=== PATIENT | female | born 1925 ===

== ENCOUNTER 2017-07-28 10:20 | Inpatient (IN) | payer MEDICARE, MEDICAID ==
--- NOTE | 2017-07-28 10:25 | C.PDOC ---
History Of Present Illness 89 year old female is brought to the ED by EMS for evaluation of CP, palpitations, dizziness that occurred while she was walking REHAB RN. Per EMS, patient was found to be in AFib she was given cardizem 15 mg that resolved the AFib. Patient reports CP is much improved, dizziness improved. Patient denies prior history of similar symptoms, no CAD or recent illness. Patient denies syncope, headaceh, visual changes, SOB, weakness, numbness, fever, chills. CP, PALPITATIONS DIZZY ONSET REHAB RN. ONSET WHILE WALKING. NO SYNCOPE. AFIB PER EMS. S/P CARDIZEM 15 MG NOW RESOLVED. PS CP MUCH IMPROVED, DIZZINESS IMPROVED. PT DENIES PRIOR HO SIM SX. NO HO CAD. NO RECENT ILLNESS EXAM MILD DIST NONTOXIC HEENT NEG LUNGS CTA B/L NO W/R/R CV RRR SINUS TACH NO EDEMA ABD NEG REMAINDER NEG MDM EMS RHYTHM STRIP UNAVAILABLE FOR REVIEW Chief Complaint (Nursing): Chest Pain History Per: Patient, EMS History/Exam Limitations: no limitations Onset/Duration Of Symptoms: Hrs Current Symptoms Are (Timing): Better Quality: "Pain" Associated Symptoms: Nausea Modifying Factors: None Exacerbating Factors: None Alleviating Factors: Other (cardizem 15 mg ) Recent travel outside of the [place]: No Additional History Per: Patient, EMS Past Medical History Reviewed: Historical Data, Nursing Documentation, Vital Signs Vital Signs: Last Vital Signs Temp 98.1 F 07/28/17 10:20 Pulse 112 H 07/28/17 11:08 Resp 20 07/28/17 11:08 BP 90/48 L 07/28/17 11:08 Pulse Ox 96 07/28/17 11:45 - Medical History PMH: No Chronic Diseases Surgical History: No Surg Hx Family History: States: Unknown Family Hx - Social History Hx Tobacco Use: No Hx Alcohol Use: No Hx Substance Use: No Review Of Systems Constitutional: Negative for: Fever, Chills Cardiovascular: Positive for: Chest Pain, Palpitations Respiratory: Negative for: Cough, Shortness of Breath Gastrointestinal: Negative for: Nausea, Vomiting, Abdominal Pain, Diarrhea Musculoskeletal: Negative for: Back Pain Skin: Negative for: Rash Neurological: Positive for: Dizziness. Negative for: Weakness, Numbness, Headache Physical Exam - Physical Exam Appears: Non-toxic, Other (Mild distress) Skin: Normal Color, Warm, Dry Head: Atraumatic, Normacephalic Eye(s): bilateral: Normal Inspection Ear(s): Bilateral: Normal Nose: No Discharge, No Deformity Oral Mucosa: Moist Throat: Normal, No Erythema, No Exudate Neck: Normal ROM, Supple Chest: Symmetrical Cardiovascular: Rhythm Regular (sinus tachycardia), No Murmur Respiratory: Normal Breath Sounds, No Rales, No Rhonchi, No Wheezing Gastrointestinal/Abdominal: Soft, No Tenderness, No Guarding, No Rebound Extremity: Normal ROM, No Pedal Edema, No Deformity, No Swelling Neurological/Psych: Oriented x3, Normal Speech, Normal Cognition Gait: Steady ED Course And Treatment - Laboratory Results Result Diagrams: 07/28/17 10:33 07/28/17 10:33 ECG: Interpreted By Me ECG Rhythm: Sinus Tachycardia ECG Interpretation: No Changes From Prior, Abnormal Interpretation Of ECG: TWI I,AVL V4-6 NO PRIOR Rate From EC O2 Sat by Pulse Oximetry: 96 (On RA) Pulse Ox Interpretation: Normal - Radiology CXR: Interpreted by Me CXR Interpretation: Yes: No Acute Disease Progress - Re-Evaluation Re-evaluation Note: 07/28/17 10:40 PER FRIEND, PT PREV EVALUATED BY DR GARCIA. 07/28/17 10:42 PS TOOK "4 PILLS" BY EMS REHAB RN. NO S/O FROM EMS IF ASA GIVEN. 07/28/17 10:58 PERIST DIZZY AND CP BUT IMPROVED FROM PRIOR. SBP 60 POOR RADIAL PALP REPEAT EKG SINUS TACH @ 113. PERSIST TWI CHANGES, UNCH FROM INITIAL EKG WILL BOLUS IVF. D/W DR GARCIA AWARE OF ER FINDINGS. EKG SENT 07/28/17 11:19 S/P EKG REVIEWED PER DR GARCIA ACTIVATE CODE HEART. BRILENTA 180, HEPARIN BOLUS, PLAVIX 600 MG D/W FAMILY @ BEDSIDE, AWARE AND AGREES W PLAN - Data Reviewed Data Reviewed: Lab, Diagnostic imaging, EKG, Old records - Critical Care Citical Care: Excluding Proc Time Critical Care Time: 90 minutes - Continuity of Care Discussed patient case with:: Patient, Family-HIPPA compliant Discussed pt. case with program evaluation consultant/specialty: Cardiology Medical Decision Making Medical Decision Making: Impression : Afib, chest pain Plan: * Labs * EKG * CXR * Brilinta 180 mg PO * Ecotrin 325 mg PO * Heparin 5,000 units IV * Nitroglycerin 0.4 mg SL * Plavix 75 mg PO * IV fluids * O2 nasal cannula Spoke with Dr. Garcia regarding the patient. Disposition Counseled Patient/Family Regarding: Studies Performed, Diagnosis - Disposition Disposition: HOSPITALIZED Disposition Time: 11:20 Condition: CRITICAL - POA Present On Arrival: None Core Measure Indicators: Code Heart - Clinical Impression Clinical Impression: STEMI (ST elevation myocardial infarction) - Scribe Statement The provider has reviewed the documentation as recorded by the Scribe Elvis Kelly All medical record entries made by the Scribe were at my direction and personally dictated by me. I have reviewed the chart and agree that the record accurately reflects my personal performance of the history, physical exam, medical decision making, and the department course for this patient. I have also personally directed, reviewed, and agree with the discharge instructions and disposition. Decision To Admit - Pt Status Changed To: Hospital Disposition Of: Inpatient - Admit Certification Admit to Inpatient:: After my assessment, the patient will require hospitalization for at least two midnights. This is because of the severity of symptoms shown, intensity of services needed, and/or the medical risk in this patient being treated as an outpatient. - InPatient: Physician Admission Certification: I certify that this patient requires 2 or more midnights of care for the following reason:: SEE NOTE - . Bed Request Type: ICU Admitting Physician: Eloisa Smith Patient Diagnosis: STEMI (ST elevation myocardial infarction)
[2017-07-28] MEDS ORDERED: Aspirin 325 mg EC Tablets PO STA (10:27)
[2017-07-28 10:38] LABS: BASO % 0.9 % (0.0-2.0); EOS # 0.1 K/uL (0.0-0.7); EOS % 2.1 % (0.0-4.0); HEMOGLOBIN 13.2 g/dL (11.0-16.0); LYMPH % 21.5 % (20.0-40.0); MEAN CELL VOLUME 86.3 fL (81.0-99.0); MEAN CORPUSCULAR HEMOGLOBIN 28.9 pg (27.0-31.0); MEAN CORPUSCULAR HGB CONC 33.5 g/dL (33.0-37.0); MEAN PLATELET VOLUME 8.5 fL (7.2-11.7); MONO # 0.6 K/uL (0.0-0.8); MONO % 13.6 % (0.0-10.0); NEUT # 2.9 K/uL (1.8-7.0); NEUT % 61.9 % (50.0-75.0); NRBC % 0.1 % (0.0-2.0); RBC 4.57 Mil/uL (3.80-5.20); RED CELL DISTRIBUTION WIDTH 15.5 % (11.5-14.5); WHITE BLOOD COUNT 4.7 K/uL (4.8-10.8)
[2017-07-28 10:44] LABS: PROTHROMBIN TIME 11.7 SECONDS (9.7-12.2)
[2017-07-28 10:55] LABS: ALB/GLOB RATIO 1.3 (1.0-2.1); ALBUMIN 4.3 g/dL (3.5-5.0); ALT/SGPT 27 U/L (9-52); AST/SGOT 26 U/L (14-36); BLOOD UREA NITROGEN 21 mg/dL (7-17); GFR AFRICAN-AMERICAN > 60; GFR NON-AFRICAN AMERICAN > 60
[2017-07-28] MEDS ORDERED: Sodium Chloride 0.9% 1,500 ML IV ONE (11:00)
--- NOTE | 2017-07-28 11:05 | RAD ---
PROCEDURE: CHEST RADIOGRAPH, 1 VIEW HISTORY: Palpations COMPARISON: None available. FINDINGS: LUNGS: Lung lee appear hyperinflated ; rule out underlying chronic changes of emphysema or COPD. Mild biapical pleural thickening. Bibasilar atelectasis left greater than right. PLEURA: No pneumothorax or pleural fluid seen. CARDIOVASCULAR: Normal. OSSEOUS STRUCTURES: No significant abnormalities. VISUALIZED UPPER ABDOMEN: Normal. OTHER FINDINGS: None. IMPRESSION: Lung lee appear hyperinflated ; rule out underlying chronic changes of emphysema or COPD. Mild biapical pleural thickening. Bibasilar atelectasis left greater than right.
[2017-07-28 11:06] LABS: B-TYPE NATRIURETIC PEPTIDE 417 pg/mL (0-900)
[2017-07-28] MEDS ORDERED: Sodium Chloride 0.9% 500 ML IV ONE (11:16)
[2017-07-28] MEDS ORDERED: Sodium Chloride 0.9% 1,000 ML ONE (11:16)
[2017-07-28] MEDS ORDERED: Heparin25000 units/250ml 1/2NS 25,000 UNITS/250 ML BAG IV STA (11:34)
[2017-07-28] MEDS ORDERED: Iodixanol 320 MG/ML 200 ML BOTTLE IV ONE (12:15)
[2017-07-28] MEDS ORDERED: Nitroglycerin 50mg in D5W 50 MG/250 ML BOTTLE IV ONE (12:24)
[2017-07-28] MEDS: Heparin25000 units/250ml 1/2NS 25,000 UNITS/250 ML BAG IV SCH (13:00)
[2017-07-28] MEDS ORDERED: Heparin25000 units/250ml 1/2NS 25,000 UNITS/250 ML BAG IV SCH (13:30)
[2017-07-28] MEDS ORDERED: Metoprolol Succinate 25 mg XL Tab PO ONE (13:35)
[2017-07-28] MEDS: Sodium Chloride 0.9% 1,000 ML IV SCH (14:10)
[2017-07-28 14:18] LABS: CK-MB 2.13 ng/mL (0.0-3.38); TROPONIN I 0.049 ng/mL (0.00-0.120)
--- NOTE | 2017-07-28 15:55 | CP.PCM.HP ---
<Adriana Rodriguez - Last Filed: 07/28/17 18:10> History of Present Illness - History of Present Illness History of Present Illness: CC: chest pain, palpitations, and dizziness HPI: Patient is an 89 year old female with past medical history of HTN and DM, who presents to the ED with complaints of chest pain, palpitations, and dizziness that started this morning around 8:30am. Patient was getting ready to go out with her children, when she began to have strong/severe chest pain that radiated to her left shoulder, palpitations, and dizziness. This is the first time she has experienced these symptoms. In the ambulance, patient was found to have new onset of afib w/rvr, was given Cardizem and Nitroglycerin. Patient became hypotensive and was then given 1.5L bolus of normal saline. Hypotension then resolved. In the ED, patient was found to have EKG changes (ST elevation in avr, T wave inversions in avl, v4-6). Patient currently has less pain, but complains of dizziness and headaches. Patient denies having shortness of breath , nausea, vomiting, fevers, leg pain/swelling. PMD: Dr. Mirlande Daniels PMHx: HTN, DM SurgHx: Cholecystectomy (30+ years ago) FamHx: Mother-stroke; Brother- colon ca; Sister- cervical cancer; Sons- DM, leukemia open heart surgery) Allergies: NKDA Medications: See EMR Code status: Full Code Present on Admission - Present on Admission Any Indicators Present on Admission: No Review of Systems - Constitutional Constitutional: Headache. absent: Chills, Fatigue, Fever, Weakness - EENT Eyes: absent: Change in Vision, Floaters Ears: Dizziness - Cardiovascular Cardiovascular: Chest Pain, Chest Pain with Activity, Lightheadedness, Palpitations. absent: Dyspnea - Respiratory Respiratory: absent: Cough, Dyspnea, Hemoptysis - Gastrointestinal Gastrointestinal: absent: Abdominal Pain, Constipation, Diarrhea, Hematochezia, Nausea, Vomiting - Genitourinary Genitourinary: absent: Dysuria, Hematuria - Neurological Neurological: Dizziness, Headaches - Endocrine Endocrine: Palpitations Past Patient History - Infectious Disease Hx of Infectious Diseases: None - Past Social History Smoking Status: Never Smoked - CARDIAC Hx Hypertension: Yes - ENDOCRINE/METABOLIC Hx Diabetes Mellitus Type 2: Yes - MUSCULOSKELETAL/RHEUMATOLOGICAL Hx Falls: No - PSYCHIATRIC Hx Substance Use: No - SURGICAL HISTORY Hx Surgeries: Yes Hx Cholecystectomy: Yes - ANESTHESIA Hx Anesthesia: Yes Hx Anesthesia Reactions: No Hx Malignant Hyperthermia: No Meds Allergies/Adverse Reactions: Allergies Allergy/AdvReac Type Severity Reaction Status Date / Time No Known Allergies Allergy Unverified 07/28/17 10:25 Physical Exam - Constitutional Appears: No Acute Distress - Head Exam Head Exam: ATRAUMATIC, NORMAL INSPECTION - Eye Exam Eye Exam: EOMI, Normal appearance, PERRL - ENT Exam ENT Exam: Mucous Membranes Moist - Respiratory Exam Respiratory Exam: Clear to Auscultation Bilateral, NORMAL BREATHING PATTERN. absent: Rales, Rhonchi, Wheezes, Respiratory Distress - Cardiovascular Exam Cardiovascular Exam: Tachycardia, +S1, +S2 - GI/Abdominal Exam GI & Abdominal Exam: Normal Bowel Sounds, Soft. absent: Distended, Firm - Extremities Exam Extremities exam: Positive for: normal inspection, pedal pulses present. Negative for: tenderness - Neurological Exam Neurological exam: Alert, Oriented x3 - Psychiatric Exam Psychiatric exam: Normal Affect, Normal Mood - Skin Skin Exam: Dry, Intact, Normal Color, Warm Results - Vital Signs Recent Vital Signs: Last Vital Signs Temp 97.5 F L 07/28/17 13:05 Pulse 102 H 07/28/17 13:33 Resp 20 07/28/17 13:05 BP 113/58 L 07/28/17 13:05 Pulse Ox 96 07/28/17 12:25 - Labs Result Diagrams: 07/28/17 10:33 07/28/17 10:33 Labs: Laboratory Results - last 24 hr 07/28/17 07/28/17 07/28/17 10:33 10:33 10:33 WBC 4.7 L RBC 4.57 Hgb 13.2 Hct 39.5 MCV 86.3 MCH 28.9 MCHC 33.5 RDW 15.5 H Plt Count 153 MPV 8.5 Neut % (Auto) 61.9 Lymph % (Auto) 21.5 [place] % (Auto) 13.6 H Eos % (Auto) 2.1 Baso % (Auto) 0.9 Neut # (Auto) 2.9 Lymph # (Auto) 1.0 [place] # (Auto) 0.6 Eos # (Auto) 0.1 Baso # (Auto) 0.0 PT 11.7 INR 1.0 APTT 34 Sodium 139 Potassium 4.1 Chloride 101 Carbon Dioxide 27 Anion Gap 15 BUN 21 H Creatinine 0.6 L Est GFR ( Amer) > 60 Est GFR (Non-Af Amer) > 60 Random Glucose 197 H Calcium 9.0 Total Bilirubin 0.6 AST 26 ALT 27 Alkaline Phosphatase 80 Total Creatine Kinase CK-MB (Mass) Troponin I < 0.0120 NT-Pro-B Natriuret Pep 417 Total Protein 7.7 Albumin 4.3 Globulin 3.4 Albumin/Globulin Ratio 1.3 Blood Type Antibody Screen 07/28/17 07/28/17 11:49 13:47 WBC RBC Hgb Hct MCV MCH MCHC RDW Plt Count MPV Neut % (Auto) Lymph % (Auto) [place] % (Auto) Eos % (Auto) Baso % (Auto) Neut # (Auto) Lymph # (Auto) [place] # (Auto) Eos # (Auto) Baso # (Auto) PT INR APTT Sodium Potassium Chloride Carbon Dioxide Anion Gap BUN Creatinine Est GFR ( Amer) Est GFR (Non-Af Amer) Random Glucose Calcium Total Bilirubin AST ALT Alkaline Phosphatase Total Creatine Kinase 44 CK-MB (Mass) 2.13 Troponin I 0.0490 NT-Pro-B Natriuret Pep Total Protein Albumin Globulin Albumin/Globulin Ratio Blood Type O POSITIVE Antibody Screen Negative Assessment & Plan (1) STEMI (ST elevation myocardial infarction) Assessment and Plan: Cardiology consulted, Dr. Garcia, help appreciated ICU consulted, help appreciated EKG: ST elevations on avr, T wave inversions on avl, v4,v5,v6. F/u official report New onset afib Troponin #1 <0.012, #2 0.0490, #3 pending BNP: 417 CKMB: 2.13 Lipid panel: f/u results TSH: f/u results Patient went for cardiac cath with Dr. Garcia today. - As per Dr Garcia, there is 80% stenosis of ostium of LAD. - F/U official report Asa 81mg PO daily Brillinta 90mg PO BID Metoprolol 25mg pO daily Heparin Drip Crestor 5mg PO HS NS@100mls/hr Continue management as per ICU and as per cardiology Status: Acute (2) HTN (hypertension) Assessment and Plan: Metoprolol 25mg PO daily Continue management as per ICU Status: Acute (3) Diabetes mellitus Assessment and Plan: History of DM ISS Continue to monitor blood glucose, accuchecks Continue management as per ICU Status: Acute <Mode Vasquezripden - Last Filed: 07/28/17 20:11> Results - Vital Signs Recent Vital Signs: Last Vital Signs Temp 97.3 F L 07/28/17 15:55 Pulse 108 H 07/28/17 19:00 Resp 20 07/28/17 19:00 BP 120/69 07/28/17 19:00 Pulse Ox 99 07/28/17 17:40 - Labs Result Diagrams: 07/28/17 10:33 07/28/17 10:33 Labs: Laboratory Results - last 24 hr 07/28/17 07/28/17 07/28/17 10:33 10:33 10:33 WBC 4.7 L RBC 4.57 Hgb 13.2 Hct 39.5 MCV 86.3 MCH 28.9 MCHC 33.5 RDW 15.5 H Plt Count 153 MPV 8.5 Neut % (Auto) 61.9 Lymph % (Auto) 21.5 [place] % (Auto) 13.6 H Eos % (Auto) 2.1 Baso % (Auto) 0.9 Neut # (Auto) 2.9 Lymph # (Auto) 1.0 [place] # (Auto) 0.6 Eos # (Auto) 0.1 Baso # (Auto) 0.0 PT 11.7 INR 1.0 APTT 34 Sodium 139 Potassium 4.1 Chloride 101 Carbon Dioxide 27 Anion Gap 15 BUN 21 H Creatinine 0.6 L Est GFR ( Amer) > 60 Est GFR (Non-Af Amer) > 60 POC Glucose (mg/dL) Random Glucose 197 H Calcium 9.0 Total Bilirubin 0.6 AST 26 ALT 27 Alkaline Phosphatase 80 Total Creatine Kinase CK-MB (Mass) Troponin I < 0.0120 NT-Pro-B Natriuret Pep 417 Total Protein 7.7 Albumin 4.3 Globulin 3.4 Albumin/Globulin Ratio 1.3 Blood Type Antibody Screen 07/28/17 07/28/17 07/28/17 11:49 13:47 17:02 WBC RBC Hgb Hct MCV MCH MCHC RDW Plt Count MPV Neut % (Auto) Lymph % (Auto) [place] % (Auto) Eos % (Auto) Baso % (Auto) Neut # (Auto) Lymph # (Auto) [place] # (Auto) Eos # (Auto) Baso # (Auto) PT INR APTT Sodium Potassium Chloride Carbon Dioxide Anion Gap BUN Creatinine Est GFR ( Amer) Est GFR (Non-Af Amer) POC Glucose (mg/dL) 182 H Random Glucose Calcium Total Bilirubin AST ALT Alkaline Phosphatase Total Creatine Kinase 44 CK-MB (Mass) 2.13 Troponin I 0.0490 NT-Pro-B Natriuret Pep Total Protein Albumin Globulin Albumin/Globulin Ratio Blood Type O POSITIVE Antibody Screen Negative 07/28/17 07/28/17 17:07 19:21 WBC RBC Hgb Hct MCV MCH MCHC RDW Plt Count MPV Neut % (Auto) Lymph % (Auto) [place] % (Auto) Eos % (Auto) Baso % (Auto) Neut # (Auto) Lymph # (Auto) [place] # (Auto) Eos # (Auto) Baso # (Auto) PT INR APTT 200 H* D 77 H D Sodium Potassium Chloride Carbon Dioxide Anion Gap BUN Creatinine Est GFR ( Amer) Est GFR (Non-Af Amer) POC Glucose (mg/dL) Random Glucose Calcium Total Bilirubin AST ALT Alkaline Phosphatase Total Creatine Kinase CK-MB (Mass) Troponin I NT-Pro-B Natriuret Pep Total Protein Albumin Globulin Albumin/Globulin Ratio Blood Type Antibody Screen Attending/Attestation - Attestation I have personally seen and examined this patient.: Yes I have fully participated in the care of the patient.: Yes I have reviewed all pertinent clinical information: Yes Notes (Text): Patient was seen and examined in the ER and later at ICU discussed with her daughter and son spoke to Dr Garcia I agree with the documentation of the resident's assessment and the plan 07/28/17 20:08
[2017-07-28] MEDS: (Novolin R) Insulin Human Regular 100 units/ml vial SC SCH ×2 (17:30→21:35)
--- NOTE | 2017-07-28 21:35 | CARDCATH ---
PROCEDURE DATE: 07/28/2017 INDICATIONS: Ms. Jaqui Mccoy is a very pleasant 89-year-old female who had an episode of chest pain this morning, substernal pressure like sensation radiating to the left arm, accompanied with shortness of breath. EMS came and brought her to the emergency room. En route, the patient was noted to be in new onset atrial fibrillation for which Cardizem was given. In the ER, the patient was noted to be hypertensive and initial EKG showed ST-elevation in aVL with diffused ST depression in the lateral leads. She was therefore brought emergently to [facility] for further evaluation and treatment. PROCEDURES PERFORMED: Left heart catheterization with selective left and right coronary angiogram, left ventriculogram, 6-Bangladeshi right femoral arterial access, Mynx closure device for hemostasis. TECHNIQUES OF PROCEDURE: After obtaining informed consent, the patient was brought to the cardiac cath suite in post-absorptive, non-sedated state. The patient was prepped and draped in the usual sterile fashion. A 2% lidocaine was used for infiltration of anesthesia. Using modified Seldinger technique, a 6-Bangladeshi sheath was introduced into the right femoral artery subsequently over J-wire. JR4 and JL4 diagnostic catheters were used to engage the left and right coronary systems and angiograms were obtained in different orthogonal views. Subsequently, LV gram was obtained in the [place] view. HEMODYNAMICS: Left ventricular end-diastolic pressure was 25 mmHg. There was no gradient noted up on the aortic valve. There was no AI and no GA. Left ventricular ejection fraction estimated to be 60% to 65% with no wall motion abnormalities. CORONARY ANATOMY: The left main is a large-sized vessel, bifurcates into left anterior descending and the left circumflex coronary artery. Left anterior descending artery has an osteal 80% stenosis, left circumflex large-sized vessel runs in the AV groove and gives off three obtuse marginal branches with mild nonobstructive disease and left anterior descending artery after the osteal lesion is essentially free off obstructive atherosclerotic disease at approximately 30-40% stenosis before the first diagonal branch. Has two small diagonal branches at the . Right coronary artery patent codominant with no obstructive atherosclerotic disease. IMPRESSION: Severe osteal left anterior descending (coronary artery) stenosis. RECOMMENDATIONS: The patient is to continue on dual antiplatelet therapy. We will discuss with family regarding angioplasty stenting versus minimal invasive bypass. Continue the patient on beta-blockers, statins and nitrates and guideline-directed therapy for coronary artery disease. Dusty Garcia MD
[2017-07-28 22:28] LABS: CK-MB 2.72 ng/mL (0.0-3.38); TROPONIN I 0.184 ng/mL (0.00-0.120)
[2017-07-29] MEDS: Sodium Chloride 0.9% 1,000 ML IV SCH ×2 (00:50→11:24)
[2017-07-29 06:47] LABS: BASO % 0.6 % (0.0-2.0); EOS # 0.1 K/uL (0.0-0.7); EOS % 0.7 % (0.0-4.0); LYMPH % 14.5 % (20.0-40.0); MEAN CELL VOLUME 86.6 fL (81.0-99.0); MEAN CORPUSCULAR HEMOGLOBIN 29.5 pg (27.0-31.0); MEAN CORPUSCULAR HGB CONC 34.1 g/dL (33.0-37.0); MEAN PLATELET VOLUME 9.8 fL (7.2-11.7); MONO # 0.8 K/uL (0.0-0.8); MONO % 11.9 % (0.0-10.0); NEUT # 5.1 K/uL (1.8-7.0); NEUT % 72.3 % (50.0-75.0); RBC 3.58 Mil/uL (3.80-5.20); RED CELL DISTRIBUTION WIDTH 15.5 % (11.5-14.5); WHITE BLOOD COUNT 7.1 K/uL (4.8-10.8)
[2017-07-29 06:55] LABS: HEMOGLOBIN 10.6 g/dL (11.0-16.0)
[2017-07-29 07:11] LABS: ALB/GLOB RATIO 1.1 (1.0-2.1); ALBUMIN 3.7 g/dL (3.5-5.0); ALT/SGPT < 6 U/L (9-52); AST/SGOT 51 U/L (14-36); BLOOD UREA NITROGEN 13 mg/dL (7-17); GFR AFRICAN-AMERICAN > 60; GFR NON-AFRICAN AMERICAN > 60; MAGNESIUM 1.8 mg/dL (1.6-2.3)
[2017-07-29 07:23] LABS: CK-MB 2.22 ng/mL (0.0-3.38)
[2017-07-29] MEDS: (Novolin R) Insulin Human Regular 100 units/ml vial SC SCH ×4 (08:14→22:31)
[2017-07-29] MEDS: Metoprolol Succinate 25 mg XL Tab PO SCH ×2 (08:15→09:14)
[2017-07-29] MEDS: Pantoprazole 40 mg EC Tab PO SCH (09:14)
[2017-07-29] MEDS ORDERED: Glucagon Recombinant 1 mg Inj IM PRN (09:54)
[2017-07-29] MEDS ORDERED: Dextrose 50% SYRINGE Inj (50 ml) IV PRN (09:54)
--- NOTE | 2017-07-29 09:54 | CP.PCM.PN ---
Subjective - Date & Time of Evaluation Date of Evaluation: 07/29/17 Time of Evaluation: 09:40 - Subjective Subjective: Hospitalist Progress Note Patient was seen and examined at 9:40 AM 07/29/17. NO longer experiencing chest pain NO dizziness NO palpitations (+) Left Shoulder pain persists but is less than it was yesterday Moved bowels without issues and there was no melena/black stools Bilateral leg and feet arthritic pain (has been present for years Also on Exam: HEENT: NCA, EOMI, PERRLA, NO Pharyngeal erythema/exudate, NO cervical/ supraclavicular/submandibular lymphadenopathy, NO thyromegaly Cardio: NS1 and NS2, NO M/R/G Resp: CTA B/L, NO R/R/W GI: NT, ND, BSx4, NO HSM NO rebound/guarding Ext: Pulses are strong and equal, Capillary Refill is 2 seconds, NO edema, NO bleeding or signs of cellulitis at Right Groin Catheterization Site Neuro: CN II through XII are grossly intact Patient is S/P Cardiac Catheterization by Cardiology Dr. Garcia 07/28/17 with finding of 80% occlusion [place] LAD. As per conversation with Nurse Gale, patient is for transfer to either [facility] or [facility] for stenting once Dr. Garcia makes arrangements. She is on Heparin Drip, ASA, Metoprolol, Crestor, and Brilinta Assessments: 1). STEMI 2). HTN 3). DM 2: RISS, ACHS 4). [place]: Latanoprost 5). Elevated LFTs: secondary to shock liver? Monitor Arpan Hare D.O. Objective - Vital Signs/Intake and Output Vital Signs (last 24 hours): Temp Pulse Resp BP Pulse Ox 97.8 F 96 H 10 L 135/81 98 07/29/17 07:47 07/29/17 09:00 07/29/17 09:00 07/29/17 08:29 07/29/17 09:00 Intake and Output: 07/29/17 07/29/17 06:59 18:59 Intake Total 885.8 416.5 Output Total 1100 400 Balance -214.2 16.5 - Medications Medications: Current Medications Alprazolam (Xanax) 0.5 mg PO Q12 PRN PRN Reason: anxiety Aspirin (Aspirin Chewable) 81 mg PO DAILY PENDING SALE TO [facility] Last Admin: 07/29/17 09:14 Dose: 81 mg Heparin Sodium/Sodium Chloride (Heparin 27757 Units/250ml 1/2 Normal Saline) 25 ,000 units in 250 mls @ 7.185 mls/hr IV .Q24H JAZMYNE; 12 UNITS/KG/HR PRN Reason: Protocol Last Titration: 07/28/17 18:55 Dose: 9 units/kg/hr, 5.389 mls/hr Sodium Chloride (Sodium Chloride 0.9%) 1,000 mls @ 40 mls/hr IV .Q24H JAZMYNE Insulin Human Regular (Novolin R) 0 unit SC ACHS JAZMYNE PRN Reason: Protocol Last Admin: 07/29/17 08:14 Dose: 1 unit Latanoprost (Xalatan Opht) 0 ml OU HS PENDING SALE TO [facility] Metoprolol Succinate (Toprol Xl) 25 mg PO DAILY PENDING SALE TO [facility] Last Admin: 07/29/17 09:14 Dose: Not Given Pantoprazole Sodium (Protonix Ec Tab) 40 mg PO DAILY PENDING SALE TO [facility] Last Admin: 07/29/17 09:14 Dose: 40 mg Rosuvastatin Calcium (Crestor) 5 mg PO HS PENDING SALE TO [facility] Last Admin: 07/28/17 21:35 Dose: 5 mg Ticagrelor (Brilinta) 90 mg PO BID PENDING SALE TO [facility] Last Admin: 07/29/17 09:14 Dose: 90 mg - Labs Labs: 07/29/17 06:43 07/29/17 06:43 PT 11.7 SECONDS (9.7-12.2) 07/28/17 10:33 INR 1.0 07/28/17 10:33 APTT 57 SECONDS (21-34) H D 07/29/17 06:43
--- NOTE | 2017-07-29 10:37 | CP.PCM.CON ---
History of Present Illness - History of Present Illness History of Present Illness: CC: chest pain, palpitations, and dizziness HPI: Patient is an 89 year old female with past medical history of HTN and DM, who presents to the ED with complaints of chest pain, palpitations, and dizziness that started this morning around 8:30am. Patient was getting ready to go out with her children, when she began to have strong/severe chest pain that radiated to her left shoulder, palpitations, and dizziness. This is the first time she has experienced these symptoms. In the ambulance, patient was found to have new onset of afib w/rvr, was given Cardizem and Nitroglycerin. Patient became hypotensive and was then given 1.5L bolus of normal saline. Hypotension then resolved. In the ED, patient was found to have EKG changes (ST elevation in avr, T wave inversions in avl, v4-6). Patient currently has less pain, but complains of dizziness and headaches. Patient denies having shortness of breath , nausea, vomiting, fevers, leg pain/swelling. PMD: Dr. Mirlande Daniels PMHx: HTN, DM SurgHx: Cholecystectomy (30+ years ago) FamHx: Mother-stroke; Brother- colon ca; Sister- cervical cancer; Sons- DM, leukemia open heart surgery) Allergies: NKDA Medications: See EMR Code status: Full Code Review of systems notable for the chart. On examination: Vital signs reviewed No neck vein distention noted Chest good air entry bilaterally, no wheezing or rales noted CVS regular heart sound, no murmur noted Abdomen soft, nontender. 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 Patient has a questionable rest elevation [place], underwent a angiogram, CAD noted. Patient will need a stent. Cardiology will be deciding for possibly the upper elective stenting. On heparin, antiplatelets and beta abbey. Past Patient History - Infectious Disease Hx of Infectious Diseases: None - Past Social History Smoking Status: Never Smoked - CARDIAC Hx Hypertension: Yes - ENDOCRINE/METABOLIC Hx Diabetes Mellitus Type 2: Yes - MUSCULOSKELETAL/RHEUMATOLOGICAL Hx Falls: No - PSYCHIATRIC Hx Substance Use: No - SURGICAL HISTORY Hx Surgeries: Yes Hx Cholecystectomy: Yes - ANESTHESIA Hx Anesthesia: Yes Hx Anesthesia Reactions: No Hx Malignant Hyperthermia: No Meds Allergies/Adverse Reactions: Allergies Allergy/AdvReac Type Severity Reaction Status Date / Time No Known Allergies Allergy Unverified 07/28/17 10:25 - Medications Medications: Current Medications Alprazolam (Xanax) 0.5 mg PO Q12 PRN PRN Reason: anxiety Aspirin (Aspirin Chewable) 81 mg PO DAILY [facility] Last Admin: 07/29/17 09:14 Dose: 81 mg Dextrose (Dextrose 50% Inj) 0 ml IV STAT PRN; Protocol PRN Reason: Hypoglycemia Protocol Dextrose (Glutose 15) 0 gm PO ONCE PRN; Protocol PRN Reason: Hypoglycemia Protocol Glucagon (Glucagen Diagnostic Kit) 0 mg IM STAT PRN; Protocol PRN Reason: Hypoglycemia Protocol Heparin Sodium/Sodium Chloride (Heparin 17206 Units/250ml 1/2 Normal Saline) 25 ,000 units in 250 mls @ 7.185 mls/hr IV .Q24H JAZMYNE; 12 UNITS/KG/HR PRN Reason: Protocol Last Titration: 07/28/17 18:55 Dose: 9 units/kg/hr, 5.389 mls/hr Sodium Chloride (Sodium Chloride 0.9%) 1,000 mls @ 40 mls/hr IV .Q24H JAZMYNE Dextrose (Dextrose 5% In Water 1000 Ml) 1,000 mls @ 0 mls/hr IV .Q0M PRN; Protocol; Per Protocol PRN Reason: Hypoglycemia Protocol Insulin Human Regular (Novolin R) 0 unit SC ACHS [facility] PRN Reason: Protocol Last Admin: 07/29/17 08:14 Dose: 1 unit Latanoprost (Xalatan Opht) 0 ml OU HS [facility] Metoprolol Succinate (Toprol Xl) 25 mg PO DAILY [facility] Last Admin: 07/29/17 09:14 Dose: Not Given Pantoprazole Sodium (Protonix Ec Tab) 40 mg PO DAILY [facility] Last Admin: 07/29/17 09:14 Dose: 40 mg Rosuvastatin Calcium (Crestor) 5 mg PO HS [facility] Last Admin: 07/28/17 21:35 Dose: 5 mg Ticagrelor (Brilinta) 90 mg PO BID [facility] Last Admin: 07/29/17 09:14 Dose: 90 mg Results - Vital Signs Recent Vital Signs: Last Vital Signs Temp 97.8 F 07/29/17 07:47 Pulse 85 07/29/17 10:00 Resp 19 02/05/18 10:00 BP 151/60 H 07/29/17 09:28 Pulse Ox 97 07/29/17 10:00 - Labs Result Diagrams: 07/29/17 06:43 07/29/17 06:43 Labs: Laboratory Results - last 24 hr 07/28/17 07/28/17 07/28/17 10:33 10:33 10:33 WBC 4.7 L RBC 4.57 Hgb 13.2 Hct 39.5 MCV 86.3 MCH 28.9 MCHC 33.5 RDW 15.5 H Plt Count 153 MPV 8.5 Neut % (Auto) 61.9 Lymph % (Auto) 21.5 [place] % (Auto) 13.6 H Eos % (Auto) 2.1 Baso % (Auto) 0.9 Neut # (Auto) 2.9 Lymph # (Auto) 1.0 [place] # (Auto) 0.6 Eos # (Auto) 0.1 Baso # (Auto) 0.0 PT 11.7 INR 1.0 APTT 34 Sodium 139 Potassium 4.1 Chloride 101 Carbon Dioxide 27 Anion Gap 15 BUN 21 H Creatinine 0.6 L Est GFR ( Amer) > 60 Est GFR (Non-Af Amer) > 60 POC Glucose (mg/dL) Random Glucose 197 H Calcium 9.0 Magnesium Total Bilirubin 0.6 Direct Bilirubin AST 26 ALT 27 Alkaline Phosphatase 80 Total Creatine Kinase CK-MB (Mass) Troponin I < 0.0120 NT-Pro-B Natriuret Pep 417 Total Protein 7.7 Albumin 4.3 Globulin 3.4 Albumin/Globulin Ratio 1.3 Blood Type Antibody Screen 07/28/17 07/28/17 07/28/17 11:49 13:47 17:02 WBC RBC Hgb Hct MCV MCH MCHC RDW Plt Count MPV Neut % (Auto) Lymph % (Auto) [place] % (Auto) Eos % (Auto) Baso % (Auto) Neut # (Auto) Lymph # (Auto) [place] # (Auto) Eos # (Auto) Baso # (Auto) PT INR APTT Sodium Potassium Chloride Carbon Dioxide Anion Gap BUN Creatinine Est GFR ( Amer) Est GFR (Non-Af Amer) POC Glucose (mg/dL) 182 H Random Glucose Calcium Magnesium Total Bilirubin Direct Bilirubin AST ALT Alkaline Phosphatase Total Creatine Kinase 44 CK-MB (Mass) 2.13 Troponin I 0.0490 NT-Pro-B Natriuret Pep Total Protein Albumin Globulin Albumin/Globulin Ratio Blood Type O POSITIVE Antibody Screen Negative 07/28/17 07/28/17 07/28/17 17:07 19:21 21:20 WBC RBC Hgb Hct MCV MCH MCHC RDW Plt Count MPV Neut % (Auto) Lymph % (Auto) [place] % (Auto) Eos % (Auto) Baso % (Auto) Neut # (Auto) Lymph # (Auto) [place] # (Auto) Eos # (Auto) Baso # (Auto) PT INR APTT 200 H* D 77 H D Sodium Potassium Chloride Carbon Dioxide Anion Gap BUN Creatinine Est GFR ( Amer) Est GFR (Non-Af Amer) POC Glucose (mg/dL) 120 H Random Glucose Calcium Magnesium Total Bilirubin Direct Bilirubin AST ALT Alkaline Phosphatase Total Creatine Kinase CK-MB (Mass) Troponin I NT-Pro-B Natriuret Pep Total Protein Albumin Globulin Albumin/Globulin Ratio Blood Type Antibody Screen 07/28/17 07/29/17 07/29/17 21:46 01:23 06:43 WBC 7.1 D RBC 3.58 L Hgb 10.6 L D Hct 31.0 L MCV 86.6 MCH 29.5 MCHC 34.1 RDW 15.5 H Plt Count 154 MPV 9.8 Neut % (Auto) 72.3 Lymph % (Auto) 14.5 L [place] % (Auto) 11.9 H Eos % (Auto) 0.7 Baso % (Auto) 0.6 Neut # (Auto) 5.1 Lymph # (Auto) 1.0 [place] # (Auto) 0.8 Eos # (Auto) 0.1 Baso # (Auto) 0.0 PT INR APTT 69 H D Sodium Potassium Chloride Carbon Dioxide Anion Gap BUN Creatinine Est GFR ( Amer) Est GFR (Non-Af Amer) POC Glucose (mg/dL) Random Glucose Calcium Magnesium Total Bilirubin Direct Bilirubin AST ALT Alkaline Phosphatase Total Creatine Kinase 44 CK-MB (Mass) 2.72 Troponin I 0.1840 H* NT-Pro-B Natriuret Pep Total Protein Albumin Globulin Albumin/Globulin Ratio Blood Type Antibody Screen 07/29/17 07/29/17 07/29/17 06:43 06:43 07:41 WBC RBC Hgb Hct MCV MCH MCHC RDW Plt Count MPV Neut % (Auto) Lymph % (Auto) [place] % (Auto) Eos % (Auto) Baso % (Auto) Neut # (Auto) Lymph # (Auto) [place] # (Auto) Eos # (Auto) Baso # (Auto) PT INR APTT 57 H D Sodium 138 Potassium 5.1 Chloride 108 H Carbon Dioxide 24 Anion Gap 11 BUN 13 Creatinine 0.5 L Est GFR ( Amer) > 60 Est GFR (Non-Af Amer) > 60 POC Glucose (mg/dL) 157 H Random Glucose 127 H Calcium 8.0 L Magnesium 1.8 Total Bilirubin 1.5 H Direct Bilirubin 1.0 H AST 51 H D ALT < 6 L D Alkaline Phosphatase 58 Total Creatine Kinase 69 CK-MB (Mass) 2.22 Troponin I 0.1490 H* NT-Pro-B Natriuret Pep Total Protein 7.0 Albumin 3.7 Globulin 3.3 Albumin/Globulin Ratio 1.1 Blood Type Antibody Screen
--- NOTE | 2017-07-29 10:38 | CP.CCUPN ---
CCU Subjective - Physician Review Events Since Last Encounter (Free Text): 07/29/17 10:37 Patient is an 89 year old female with past medical history of HTN and DM, who presents to the ED with complaints of chest pain, palpitations, and dizziness that started this morning around 8:30am. Patient was getting ready to go out with her children, when she began to have strong/severe chest pain that radiated to her left shoulder, palpitations, and dizziness. This is the first time she has experienced these symptoms. In the ambulance, patient was found to have new onset of afib w/rvr, was given Cardizem and Nitroglycerin. Patient became hypotensive and was then given 1.5L bolus of normal saline. Hypotension then resolved. In the ED, patient was found to have EKG changes (ST elevation in avr, T wave inversions in avl, v4-6). Patient currently has less pain, but complains of dizziness and headaches. Patient denies having shortness of breath , nausea, vomiting, fevers, leg pain/swelling. PMD: Dr. Mirlande Daniels PMHx: HTN, DM SurgHx: Cholecystectomy (30+ years ago) FamHx: Mother-stroke; Brother- colon ca; Sister- cervical cancer; Sons- DM, leukemia open heart surgery) Allergies: NKDA Medications: See EMR Code status: Full Code Review of systems notable for the chart. On examination: Vital signs reviewed No neck vein distention noted Chest good air entry bilaterally, no wheezing or rales noted CVS regular heart sound, no murmur noted Abdomen soft, nontender. Extremities no pedal edema [employer] SALESPERSON alert awake oriented -3, no functional neurological deficit Right groin is no bleeding noted Assessment/aggregation: 89 female history of hypertension diabetes admitted with chest pain. Patient has a questionable rest elevation [place], underwent a angiogram, CAD noted. Patient will need a stent. Cardiology will be deciding for possibly the upper elective stenting. On heparin, antiplatelets and beta abbey. will transfer the pt to [facility] CCU Objective - Vital Signs / Intake & Output Vital Signs (Last 4 hours): Vital Signs Temp Pulse Resp BP Pulse Ox 07/29/17 10:00 85 19 97 07/29/17 09:28 88 23 151/60 H 97 07/29/17 09:00 96 H 10 L 98 07/29/17 08:29 99 H 18 135/81 97 07/29/17 08:28 99 H 23 97 07/29/17 08:00 117 H 22 97 07/29/17 07:47 97.8 F 07/29/17 07:28 103 H 19 134/74 97 07/29/17 07:00 114 H 21 95 Intake and Output (Last 8hrs): Intake & Output 07/28/17 07/29/17 07/29/17 22:59 06:59 14:59 Intake Total 1313.4 344.0 456.5 Output Total 1000 700 400 Balance 313.4 -356.0 56.5 Weight 132 lb Intake: IV 50 Intake, IV Amount 843.4 244.0 256.5 Left Forearm 43.4 44.0 16.5 Left Proximal Port 800 200 240 Forearm Oral 420 100 200 Output: Urine 1000 700 400 Urine, Voided 1000 700 400 Other: # Bowel Movements 0 0 - Medications Active Medications: Active Medications Generic Name Dose Route Start Last Admin Trade Name Freq PRN Reason Stop Dose Admin Alprazolam 0.5 mg 07/29/17 09:33 Xanax PO Q12 PRN anxiety Aspirin 81 mg 07/29/17 10:00 07/29/17 09:14 Aspirin Chewable PO 81 mg DAILY JAZMYNE Administration Dextrose 0 ml 07/29/17 09:54 Dextrose 50% Inj IV STAT PRN Hypoglycemia Protocol Protocol Dextrose 0 gm 07/29/17 09:54 Glutose 15 PO ONCE PRN Hypoglycemia Protocol Protocol Glucagon 0 mg 07/29/17 09:54 Glucagen Diagnostic Kit IM STAT PRN Hypoglycemia Protocol Protocol Heparin Sodium/Sodium Chloride 25,000 units in 250 mls @ 7.185 mls/hr 13:34 07/28/17 18:55 Heparin 40148 Units/250ml 1/2 Normal Saline IV 9 units/kg/hr .Q24H JAZMYNE 5.389 mls/hr Protocol Titration 12 UNITS/KG/HR Sodium Chloride 1,000 mls @ 40 mls/hr 07/29/17 09:35 Sodium Chloride 0.9% IV .Q24H AJZMYNE Dextrose 1,000 mls @ 0 mls/hr 07/29/17 09:54 Dextrose 5% In Water 1000 Ml IV .Q0M PRN Hypoglycemia Protocol Protocol Per Protocol Insulin Human Regular 0 unit 07/28/17 16:30 07/29/17 08:14 Novolin R SC 1 unit ACHS JAZMYNE Administration Protocol Latanoprost 0 ml 07/29/17 22:00 Xalatan Opht OU HS [facility] Metoprolol Succinate 25 mg 07/29/17 10:00 07/29/17 09:14 Toprol Xl PO Not Given DAILY [facility]MY[facility] Pantoprazole Sodium 40 mg 07/29/17 10:00 07/29/17 09:14 Protonix Ec Tab PO 40 mg DAILY [facility] Administration Rosuvastatin Calcium 5 mg 07/28/17 22:00 07/28/17 21:35 Crestor PO 5 mg HS [facility]AZMYNE Administration Ticagrelor 90 mg 07/28/17 18:00 07/29/17 09:14 Brilinta PO 90 mg BID JAZMYNE Administration - Patient Studies Lab Studies: Lab Studies 07/29/17 07/29/17 07/29/17 Range/Units 07:41 06:43 06:43 WBC (4.8-10.8) K/uL RBC (3.80-5.20) Mil/uL Hgb (11.0-16.0) g/dL Hct (34.0-47.0) % MCV (81.0-99.0) fL MCH (27.0-31.0) pg MCHC (33.0-37.0) g/dL RDW (11.5-14.5) % Plt Count (130-400) K/uL MPV (7.2-11.7) fL Neut % (Auto) (50.0-75.0) % Lymph % (Auto) (20.0-40.0) % [place] % (Auto) (0.0-10.0) % Eos % (Auto) (0.0-4.0) % Baso % (Auto) (0.0-2.0) % Neut # (Auto) (1.8-7.0) K/uL Lymph # (Auto) (1.0-4.3) K/uL [place] # (Auto) (0.0-0.8) K/uL Eos # (Auto) (0.0-0.7) K/uL Baso # (Auto) (0.0-0.2) K/uL PT (9.7-12.2) SECONDS INR APTT 57 H D (21-34) SECONDS Sodium 138 (132-148) mmol/L Potassium 5.1 (3.6-5.2) mmol/L Chloride 108 H (98-107) mmol/L Carbon Dioxide 24 (22-30) mmol/L Anion Gap 11 (10-20) BUN 13 (7-17) mg/dL Creatinine 0.5 L (0.7-1.2) mg/dL Est GFR ( Amer) > 60 Est GFR (Non-Af Amer) > 60 POC Glucose (mg/dL) 157 H (65-110) mg/dL Random Glucose 127 H (65-105) mg/dL Calcium 8.0 L (8.6-10.4) mg/dl Magnesium 1.8 (1.6-2.3) mg/dL Total Bilirubin 1.5 H (0.2-1.3) mg/dL Direct Bilirubin 1.0 H (0.0-0.4) mg/dL AST 51 H D (14-36) U/L ALT < 6 L D (9-52) U/L Alkaline Phosphatase 58 (38-126) U/L Total Creatine Kinase 69 (30-135) U/L CK-MB (Mass) 2.22 (0.0-3.38) ng/mL Troponin I 0.1490 H* (0.00-0.120) ng/mL NT-Pro-B Natriuret Pep (0-900) pg/mL Total Protein 7.0 (6.3-8.3) g/dL Albumin 3.7 (3.5-5.0) g/dL Globulin 3.3 (2.2-3.9) gm/dL Albumin/Globulin Ratio 1.1 (1.0-2.1) Blood Type Antibody Screen 07/29/17 07/29/17 07/28/17 Range/Units 06:43 01:23 21:46 WBC 7.1 D (4.8-10.8) K/uL RBC 3.58 L (3.80-5.20) Mil/uL Hgb 10.6 L D (11.0-16.0) g/dL Hct 31.0 L (34.0-47.0) % MCV 86.6 (81.0-99.0) fL MCH 29.5 (27.0-31.0) pg MCHC 34.1 (33.0-37.0) g/dL RDW 15.5 H (11.5-14.5) % Plt Count 154 (130-400) K/uL MPV 9.8 (7.2-11.7) fL Neut % (Auto) 72.3 (50.0-75.0) % Lymph % (Auto) 14.5 L (20.0-40.0) % [place] % (Auto) 11.9 H (0.0-10.0) % Eos % (Auto) 0.7 (0.0-4.0) % Baso % (Auto) 0.6 (0.0-2.0) % Neut # (Auto) 5.1 (1.8-7.0) K/uL Lymph # (Auto) 1.0 (1.0-4.3) K/uL [place] # (Auto) 0.8 (0.0-0.8) K/uL Eos # (Auto) 0.1 (0.0-0.7) K/uL Baso # (Auto) 0.0 (0.0-0.2) K/uL PT (9.7-12.2) SECONDS INR APTT 69 H D (21-34) SECONDS Sodium (132-148) mmol/L Potassium (3.6-5.2) mmol/L Chloride (98-107) mmol/L Carbon Dioxide (22-30) mmol/L Anion Gap (10-20) BUN (7-17) mg/dL Creatinine (0.7-1.2) mg/dL Est GFR ( Amer) Est GFR (Non-Af Amer) POC Glucose (mg/dL) (65-110) mg/dL Random Glucose (65-105) mg/dL Calcium (8.6-10.4) mg/dl Magnesium (1.6-2.3) mg/dL Total Bilirubin (0.2-1.3) mg/dL Direct Bilirubin (0.0-0.4) mg/dL AST (14-36) U/L ALT (9-52) U/L Alkaline Phosphatase (38-126) U/L Total Creatine Kinase 44 (30-135) U/L CK-MB (Mass) 2.72 (0.0-3.38) ng/mL Troponin I 0.1840 H* (0.00-0.120) ng/mL NT-Pro-B Natriuret Pep (0-900) pg/mL Total Protein (6.3-8.3) g/dL Albumin (3.5-5.0) g/dL Globulin (2.2-3.9) gm/dL Albumin/Globulin Ratio (1.0-2.1) Blood Type Antibody Screen 07/28/17 07/28/17 07/28/17 Range/Units 21:20 19:21 17:07 WBC (4.8-10.8) K/uL RBC (3.80-5.20) Mil/uL Hgb (11.0-16.0) g/dL Hct (34.0-47.0) % MCV (81.0-99.0) fL MCH (27.0-31.0) pg MCHC (33.0-37.0) g/dL RDW (11.5-14.5) % Plt Count (130-400) K/uL MPV (7.2-11.7) fL Neut % (Auto) (50.0-75.0) % Lymph % (Auto) (20.0-40.0) % [place] % (Auto) (0.0-10.0) % Eos % (Auto) (0.0-4.0) % Baso % (Auto) (0.0-2.0) % Neut # (Auto) (1.8-7.0) K/uL Lymph # (Auto) (1.0-4.3) K/uL [place] # (Auto) (0.0-0.8) K/uL Eos # (Auto) (0.0-0.7) K/uL Baso # (Auto) (0.0-0.2) K/uL PT (9.7-12.2) SECONDS INR APTT 77 H D 200 H* D (21-34) SECONDS Sodium (132-148) mmol/L Potassium (3.6-5.2) mmol/L Chloride (98-107) mmol/L Carbon Dioxide (22-30) mmol/L Anion Gap (10-20) BUN (7-17) mg/dL Creatinine (0.7-1.2) mg/dL Est GFR ( Amer) Est GFR (Non-Af Amer) POC Glucose (mg/dL) 120 H (65-110) mg/dL Random Glucose (65-105) mg/dL Calcium (8.6-10.4) mg/dl Magnesium (1.6-2.3) mg/dL Total Bilirubin (0.2-1.3) mg/dL Direct Bilirubin (0.0-0.4) mg/dL AST (14-36) U/L ALT (9-52) U/L Alkaline Phosphatase (38-126) U/L Total Creatine Kinase (30-135) U/L CK-MB (Mass) (0.0-3.38) ng/mL Troponin I (0.00-0.120) ng/mL NT-Pro-B Natriuret Pep (0-900) pg/mL Total Protein (6.3-8.3) g/dL Albumin (3.5-5.0) g/dL Globulin (2.2-3.9) gm/dL Albumin/Globulin Ratio (1.0-2.1) Blood Type Antibody Screen 07/28/17 07/28/17 07/28/17 Range/Units 17:02 13:47 11:49 WBC (4.8-10.8) K/uL RBC (3.80-5.20) Mil/uL Hgb (11.0-16.0) g/dL Hct (34.0-47.0) % MCV (81.0-99.0) fL MCH (27.0-31.0) pg MCHC (33.0-37.0) g/dL RDW (11.5-14.5) % Plt Count (130-400) K/uL MPV (7.2-11.7) fL Neut % (Auto) (50.0-75.0) % Lymph % (Auto) (20.0-40.0) % [place] % (Auto) (0.0-10.0) % Eos % (Auto) (0.0-4.0) % Baso % (Auto) (0.0-2.0) % Neut # (Auto) (1.8-7.0) K/uL Lymph # (Auto) (1.0-4.3) K/uL [place] # (Auto) (0.0-0.8) K/uL Eos # (Auto) (0.0-0.7) K/uL Baso # (Auto) (0.0-0.2) K/uL PT (9.7-12.2) SECONDS INR APTT (21-34) SECONDS Sodium (132-148) mmol/L Potassium (3.6-5.2) mmol/L Chloride (98-107) mmol/L Carbon Dioxide (22-30) mmol/L Anion Gap (10-20) BUN (7-17) mg/dL Creatinine (0.7-1.2) mg/dL Est GFR ( Amer) Est GFR (Non-Af Amer) POC Glucose (mg/dL) 182 H (65-110) mg/dL Random Glucose (65-105) mg/dL Calcium (8.6-10.4) mg/dl Magnesium (1.6-2.3) mg/dL Total Bilirubin (0.2-1.3) mg/dL Direct Bilirubin (0.0-0.4) mg/dL AST (14-36) U/L ALT (9-52) U/L Alkaline Phosphatase (38-126) U/L Total Creatine Kinase 44 (30-135) U/L CK-MB (Mass) 2.13 (0.0-3.38) ng/mL Troponin I 0.0490 (0.00-0.120) ng/mL NT-Pro-B Natriuret Pep (0-900) pg/mL Total Protein (6.3-8.3) g/dL Albumin (3.5-5.0) g/dL Globulin (2.2-3.9) gm/dL Albumin/Globulin Ratio (1.0-2.1) Blood Type O POSITIVE Antibody Screen Negative 07/28/17 07/28/17 07/28/17 Range/Units 10:33 10:33 10:33 WBC 4.7 L (4.8-10.8) K/uL RBC 4.57 (3.80-5.20) Mil/uL Hgb 13.2 (11.0-16.0) g/dL Hct 39.5 (34.0-47.0) % MCV 86.3 (81.0-99.0) fL MCH 28.9 (27.0-31.0) pg MCHC 33.5 (33.0-37.0) g/dL RDW 15.5 H (11.5-14.5) % Plt Count 153 (130-400) K/uL MPV 8.5 (7.2-11.7) fL Neut % (Auto) 61.9 (50.0-75.0) % Lymph % (Auto) 21.5 (20.0-40.0) % [place] % (Auto) 13.6 H (0.0-10.0) % Eos % (Auto) 2.1 (0.0-4.0) % Baso % (Auto) 0.9 (0.0-2.0) % Neut # (Auto) 2.9 (1.8-7.0) K/uL Lymph # (Auto) 1.0 (1.0-4.3) K/uL [place] # (Auto) 0.6 (0.0-0.8) K/uL Eos # (Auto) 0.1 (0.0-0.7) K/uL Baso # (Auto) 0.0 (0.0-0.2) K/uL PT 11.7 (9.7-12.2) SECONDS INR 1.0 APTT 34 (21-34) SECONDS Sodium 139 (132-148) mmol/L Potassium 4.1 (3.6-5.2) mmol/L Chloride 101 (98-107) mmol/L Carbon Dioxide 27 (22-30) mmol/L Anion Gap 15 (10-20) BUN 21 H (7-17) mg/dL Creatinine 0.6 L (0.7-1.2) mg/dL Est GFR ( Amer) > 60 Est GFR (Non-Af Amer) > 60 POC Glucose (mg/dL) (65-110) mg/dL Random Glucose 197 H (65-105) mg/dL Calcium 9.0 (8.6-10.4) mg/dl Magnesium (1.6-2.3) mg/dL Total Bilirubin 0.6 (0.2-1.3) mg/dL Direct Bilirubin (0.0-0.4) mg/dL AST 26 (14-36) U/L ALT 27 (9-52) U/L Alkaline Phosphatase 80 (38-126) U/L Total Creatine Kinase (30-135) U/L CK-MB (Mass) (0.0-3.38) ng/mL Troponin I < 0.0120 (0.00-0.120) ng/mL NT-Pro-B Natriuret Pep 417 (0-900) pg/mL Total Protein 7.7 (6.3-8.3) g/dL Albumin 4.3 (3.5-5.0) g/dL Globulin 3.4 (2.2-3.9) gm/dL Albumin/Globulin Ratio 1.3 (1.0-2.1) Blood Type Antibody Screen Laboratory Results - last 24 hr 07/28/17 07/28/17 07/28/17 10:33 10:33 10:33 WBC 4.7 L RBC 4.57 Hgb 13.2 Hct 39.5 MCV 86.3 MCH 28.9 MCHC 33.5 RDW 15.5 H Plt Count 153 MPV 8.5 Neut % (Auto) 61.9 Lymph % (Auto) 21.5 [place] % (Auto) 13.6 H Eos % (Auto) 2.1 Baso % (Auto) 0.9 Neut # (Auto) 2.9 Lymph # (Auto) 1.0 [place] # (Auto) 0.6 Eos # (Auto) 0.1 Baso # (Auto) 0.0 PT 11.7 INR 1.0 APTT 34 Sodium 139 Potassium 4.1 Chloride 101 Carbon Dioxide 27 Anion Gap 15 BUN 21 H Creatinine 0.6 L Est GFR ( Amer) > 60 Est GFR (Non-Af Amer) > 60 POC Glucose (mg/dL) Random Glucose 197 H Calcium 9.0 Magnesium Total Bilirubin 0.6 Direct Bilirubin AST 26 ALT 27 Alkaline Phosphatase 80 Total Creatine Kinase CK-MB (Mass) Troponin I < 0.0120 NT-Pro-B Natriuret Pep 417 Total Protein 7.7 Albumin 4.3 Globulin 3.4 Albumin/Globulin Ratio 1.3 Blood Type Antibody Screen 07/28/17 07/28/17 07/28/17 11:49 13:47 17:02 WBC RBC Hgb Hct MCV MCH MCHC RDW Plt Count MPV Neut % (Auto) Lymph % (Auto) Rock % (Auto) Eos % (Auto) Baso % (Auto) Neut # (Auto) Lymph # (Auto) Rock # (Auto) Eos # (Auto) Baso # (Auto) PT INR APTT Sodium Potassium Chloride Carbon Dioxide Anion Gap BUN Creatinine Est GFR ( Amer) Est GFR (Non-Af Amer) POC Glucose (mg/dL) 182 H Random Glucose Calcium Magnesium Total Bilirubin Direct Bilirubin AST ALT Alkaline Phosphatase Total Creatine Kinase 44 CK-MB (Mass) 2.13 Troponin I 0.0490 NT-Pro-B Natriuret Pep Total Protein Albumin Globulin Albumin/Globulin Ratio Blood Type O POSITIVE Antibody Screen Negative 07/28/17 07/28/17 07/28/17 17:07 19:21 21:20 WBC RBC Hgb Hct MCV MCH MCHC RDW Plt Count MPV Neut % (Auto) Lymph % (Auto) Rock % (Auto) Eos % (Auto) Baso % (Auto) Neut # (Auto) Lymph # (Auto) Rock # (Auto) Eos # (Auto) Baso # (Auto) PT INR APTT 200 H* D 77 H D Sodium Potassium Chloride Carbon Dioxide Anion Gap BUN Creatinine Est GFR ( Amer) Est GFR (Non-Af Amer) POC Glucose (mg/dL) 120 H Random Glucose Calcium Magnesium Total Bilirubin Direct Bilirubin AST ALT Alkaline Phosphatase Total Creatine Kinase CK-MB (Mass) Troponin I NT-Pro-B Natriuret Pep Total Protein Albumin Globulin Albumin/Globulin Ratio Blood Type Antibody Screen 07/28/17 07/29/17 07/29/17 21:46 01:23 06:43 WBC 7.1 D RBC 3.58 L Hgb 10.6 L D Hct 31.0 L MCV 86.6 MCH 29.5 MCHC 34.1 RDW 15.5 H Plt Count 154 MPV 9.8 Neut % (Auto) 72.3 Lymph % (Auto) 14.5 L Rock % (Auto) 11.9 H Eos % (Auto) 0.7 Baso % (Auto) 0.6 Neut # (Auto) 5.1 Lymph # (Auto) 1.0 Rock # (Auto) 0.8 Eos # (Auto) 0.1 Baso # (Auto) 0.0 PT INR APTT 69 H D Sodium Potassium Chloride Carbon Dioxide Anion Gap BUN Creatinine Est GFR ( Amer) Est GFR (Non-Af Amer) POC Glucose (mg/dL) Random Glucose Calcium Magnesium Total Bilirubin Direct Bilirubin AST ALT Alkaline Phosphatase Total Creatine Kinase 44 CK-MB (Mass) 2.72 Troponin I 0.1840 H* NT-Pro-B Natriuret Pep Total Protein Albumin Globulin Albumin/Globulin Ratio Blood Type Antibody Screen 07/29/17 07/29/17 07/29/17 06:43 06:43 07:41 WBC RBC Hgb Hct MCV MCH MCHC RDW Plt Count MPV Neut % (Auto) Lymph % (Auto) Rock % (Auto) Eos % (Auto) Baso % (Auto) Neut # (Auto) Lymph # (Auto) Rock # (Auto) Eos # (Auto) Baso # (Auto) PT INR APTT 57 H D Sodium 138 Potassium 5.1 Chloride 108 H Carbon Dioxide 24 Anion Gap 11 BUN 13 Creatinine 0.5 L Est GFR ( Amer) > 60 Est GFR (Non-Af Amer) > 60 POC Glucose (mg/dL) 157 H Random Glucose 127 H Calcium 8.0 L Magnesium 1.8 Total Bilirubin 1.5 H Direct Bilirubin 1.0 H AST 51 H D ALT < 6 L D Alkaline Phosphatase 58 Total Creatine Kinase 69 CK-MB (Mass) 2.22 Troponin I 0.1490 H* NT-Pro-B Natriuret Pep Total Protein 7.0 Albumin 3.7 Globulin 3.3 Albumin/Globulin Ratio 1.1 Blood Type Antibody Screen EKG/Cardiology Studies: Cardiology / EKG Studies 07/28/17 10:22 ELECTROCARDIOGRAM Stat Comment: Mode Of Transportation: BED Reason For Exam: Palpations 07/28/17 10:28 ELECTROCARDIOGRAM Stat Comment: Mode Of Transportation: BED Reason For Exam: Palpations 07/28/17 10:50 EKG [ELECTROCARDIOGRAM] Stat Comment: Mode Of Transportation: BED Reason For Exam: repeat Fingerstick Blood Sugar Results: 157 Critical Care Progress Note - Nutrition Nutrition: Nutrition Category Date Time Status Heart Healthy Diet [DIET] Diets 07/28/17 Dinner Active
--- NOTE | 2017-07-29 12:32 | CP.PCM.CON ---
<Kameron Zambrano - Last Filed: 07/29/17 16:03> History of Present Illness - History of Present Illness History of Present Illness: Cardiology Consult Note for Dr. Garcia CC: Chest pain Pt is an 89 yo female with PMH of HTN and DM presents to due to chest pain that started on AM of admission. Pt described chest pain as substernal pressure that radiated to left arm. Pt also complains of associated shortness of breath. Pt denies prior occurrences, alleviating or aggravating factors. Pt was found to have new onset atrial fibrillation by EMS and was treated with Cardizem. In the ED, EKG showed ST-elevation in AVL and ST depression in the lateral leads. Thus, patient was emergently taken to catherization lab for evaulation, which revealed 80% stenosis of the osteal LAD. Currently, post procedure day 1, patient denied CP, SOB, n/v/d, abdominal pain, palpitations, fever, chills, PRINCE, or dizziness. PMH: HTN, DM Surg: Cholecystectomy All: NKDA FH: CVA (mother), Colon CA (brother), Cervical cancer (sister), CAD (son) SH: Denied tobacco, EtOH, or illicit drug use Review of Systems - Review of Systems Review of Systems: 12 point ROS reviewed and is negative other than what is stated in HPI. Past Patient History - Infectious Disease Hx of Infectious Diseases: None - Past Social History Smoking Status: Never Smoked - CARDIAC Hx Hypertension: Yes - ENDOCRINE/METABOLIC Hx Diabetes Mellitus Type 2: Yes - MUSCULOSKELETAL/RHEUMATOLOGICAL Hx Falls: No - PSYCHIATRIC Hx Substance Use: No - SURGICAL HISTORY Hx Surgeries: Yes Hx Cholecystectomy: Yes - ANESTHESIA Hx Anesthesia: Yes Hx Anesthesia Reactions: No Hx Malignant Hyperthermia: No Meds Allergies/Adverse Reactions: Allergies Allergy/AdvReac Type Severity Reaction Status Date / Time No Known Allergies Allergy Unverified 07/28/17 10:25 - Medications Medications: Current Medications Alprazolam (Xanax) 0.5 mg PO Q12 PRN PRN Reason: anxiety Aspirin (Aspirin Chewable) 81 mg PO DAILY [facility] Last Admin: 07/29/17 09:14 Dose: 81 mg Dextrose (Dextrose 50% Inj) 0 ml IV STAT PRN; Protocol PRN Reason: Hypoglycemia Protocol Dextrose (Glutose 15) 0 gm PO ONCE PRN; Protocol PRN Reason: Hypoglycemia Protocol Glucagon (Glucagen Diagnostic Kit) 0 mg IM STAT PRN; Protocol PRN Reason: Hypoglycemia Protocol Heparin Sodium/Sodium Chloride (Heparin 50306 Units/250ml 1/2 Normal Saline) 25 ,000 units in 250 mls @ 7.185 mls/hr IV .Q24H [facility]; 12 UNITS/KG/HR PRN Reason: Protocol Last Titration: 07/28/17 18:55 Dose: 9 units/kg/hr, 5.389 mls/hr Sodium Chloride (Sodium Chloride 0.9%) 1,000 mls @ 40 mls/hr IV .Q24H [facility] Last Admin: 07/29/17 11:24 Dose: 40 mls/hr Dextrose (Dextrose 5% In Water 1000 Ml) 1,000 mls @ 0 mls/hr IV .Q0M PRN; Protocol; Per Protocol PRN Reason: Hypoglycemia Protocol Insulin Human Regular (Novolin R) 0 unit SC ACHS [facility] PRN Reason: Protocol Last Admin: 07/29/17 12:06 Dose: 3 unit Latanoprost (Xalatan Opht) 0 ml OU HS [facility] Metoprolol Succinate (Toprol Xl) 25 mg PO DAILY [facility] Last Admin: 07/29/17 09:14 Dose: Not Given Pantoprazole Sodium (Protonix Ec Tab) 40 mg PO DAILY [facility] Last Admin: 07/29/17 09:14 Dose: 40 mg Rosuvastatin Calcium (Crestor) 5 mg PO HS [facility] Last Admin: 07/28/17 21:35 Dose: 5 mg Ticagrelor (Brilinta) 90 mg PO BID [facility] Last Admin: 07/29/17 09:14 Dose: 90 mg Physical Exam - Constitutional Appears: No Acute Distress - Head Exam Head Exam: NORMAL INSPECTION - Eye Exam Eye Exam: Normal appearance - ENT Exam ENT Exam: Normal Exam - Neck Exam Neck exam: Positive for: Normal Inspection - Respiratory Exam Respiratory Exam: Clear to Auscultation Bilateral. absent: Rales, Rhonchi, Wheezes - Cardiovascular Exam Cardiovascular Exam: Tachycardia, +S1, +S2. absent: Diastolic murmur, Gallop, Rubs, Systolic Murmur - GI/Abdominal Exam GI & Abdominal Exam: Soft. absent: Distended, Guarding, Rebound, Tenderness - Extremities Exam Extremities exam: Positive for: normal inspection - Neurological Exam Neurological exam: Alert, Oriented x3 - Skin Skin Exam: Dry, Intact, Normal Color, Warm Results - Vital Signs Recent Vital Signs: Last Vital Signs Temp 97.8 F 07/29/17 07:47 Pulse 84 07/29/17 12:00 Resp 31 H 07/29/17 12:00 BP 109/45 L 07/29/17 10:29 Pulse Ox 98 07/29/17 12:00 - Labs Result Diagrams: 07/29/17 06:43 07/29/17 06:43 Labs: Laboratory Results - last 24 hr 07/28/17 07/28/17 07/28/17 11:49 13:47 17:02 WBC RBC Hgb Hct MCV MCH MCHC RDW Plt Count MPV Neut % (Auto) Lymph % (Auto) Falls % (Auto) Eos % (Auto) Baso % (Auto) Neut # (Auto) Lymph # (Auto) Falls # (Auto) Eos # (Auto) Baso # (Auto) APTT Sodium Potassium Chloride Carbon Dioxide Anion Gap BUN Creatinine Est GFR ( Amer) Est GFR (Non-Af Amer) POC Glucose (mg/dL) 182 H Random Glucose Calcium Magnesium Total Bilirubin Direct Bilirubin AST ALT Alkaline Phosphatase Total Creatine Kinase 44 CK-MB (Mass) 2.13 Troponin I 0.0490 Total Protein Albumin Globulin Albumin/Globulin Ratio Antibody Screen Negative 07/28/17 07/28/17 07/28/17 17:07 19:21 21:20 WBC RBC Hgb Hct MCV MCH MCHC RDW Plt Count MPV Neut % (Auto) Lymph % (Auto) Falls % (Auto) Eos % (Auto) Baso % (Auto) Neut # (Auto) Lymph # (Auto) Falls # (Auto) Eos # (Auto) Baso # (Auto) APTT 200 H* D 77 H D Sodium Potassium Chloride Carbon Dioxide Anion Gap BUN Creatinine Est GFR ( Amer) Est GFR (Non-Af Amer) POC Glucose (mg/dL) 120 H Random Glucose Calcium Magnesium Total Bilirubin Direct Bilirubin AST ALT Alkaline Phosphatase Total Creatine Kinase CK-MB (Mass) Troponin I Total Protein Albumin Globulin Albumin/Globulin Ratio Antibody Screen 07/28/17 07/29/17 07/29/17 21:46 01:23 06:43 WBC 7.1 D RBC 3.58 L Hgb 10.6 L D Hct 31.0 L MCV 86.6 MCH 29.5 MCHC 34.1 RDW 15.5 H Plt Count 154 MPV 9.8 Neut % (Auto) 72.3 Lymph % (Auto) 14.5 L Falls % (Auto) 11.9 H Eos % (Auto) 0.7 Baso % (Auto) 0.6 Neut # (Auto) 5.1 Lymph # (Auto) 1.0 Falls # (Auto) 0.8 Eos # (Auto) 0.1 Baso # (Auto) 0.0 APTT 69 H D Sodium Potassium Chloride Carbon Dioxide Anion Gap BUN Creatinine Est GFR ( Amer) Est GFR (Non-Af Amer) POC Glucose (mg/dL) Random Glucose Calcium Magnesium Total Bilirubin Direct Bilirubin AST ALT Alkaline Phosphatase Total Creatine Kinase 44 CK-MB (Mass) 2.72 Troponin I 0.1840 H* Total Protein Albumin Globulin Albumin/Globulin Ratio Antibody Screen 07/29/17 07/29/17 07/29/17 06:43 06:43 07:41 WBC RBC Hgb Hct MCV MCH MCHC RDW Plt Count MPV Neut % (Auto) Lymph % (Auto) Falls % (Auto) Eos % (Auto) Baso % (Auto) Neut # (Auto) Lymph # (Auto) Falls # (Auto) Eos # (Auto) Baso # (Auto) APTT 57 H D Sodium 138 Potassium 5.1 Chloride 108 H Carbon Dioxide 24 Anion Gap 11 BUN 13 Creatinine 0.5 L Est GFR ( Amer) > 60 Est GFR (Non-Af Amer) > 60 POC Glucose (mg/dL) 157 H Random Glucose 127 H Calcium 8.0 L Magnesium 1.8 Total Bilirubin 1.5 H Direct Bilirubin 1.0 H AST 51 H D ALT < 6 L D Alkaline Phosphatase 58 Total Creatine Kinase 69 CK-MB (Mass) 2.22 Troponin I 0.1490 H* Total Protein 7.0 Albumin 3.7 Globulin 3.3 Albumin/Globulin Ratio 1.1 Antibody Screen 07/29/17 11:55 WBC RBC Hgb Hct MCV MCH MCHC RDW Plt Count MPV Neut % (Auto) Lymph % (Auto) Falls % (Auto) Eos % (Auto) Baso % (Auto) Neut # (Auto) Lymph # (Auto) Falls # (Auto) Eos # (Auto) Baso # (Auto) APTT Sodium Potassium Chloride Carbon Dioxide Anion Gap BUN Creatinine Est GFR ( Amer) Est GFR (Non-Af Amer) POC Glucose (mg/dL) 251 H Random Glucose Calcium Magnesium Total Bilirubin Direct Bilirubin AST ALT Alkaline Phosphatase Total Creatine Kinase CK-MB (Mass) Troponin I Total Protein Albumin Globulin Albumin/Globulin Ratio Antibody Screen Assessment & Plan - Assessment and Plan (Free Text) Assessment: 89 yo F with PMH of HTN and DM is being evaluated and treated for STEMI. Plan: 1. STEMI - EKG revealed ST elevation on AVL and ST depression on lateral leads - Troponin < 0.012, 0.049, 0.1840, 0.1490 - Cardiac catherization revealed 80% stenosis of the osteal LAD - Plan for therapeutic cardiac cath tomorrow - F/u echo - Continue dual antiplatelet therapy - Cont heparin drip, lopressor, Crestor 2. New onset atrial fibrillation - CHADSVASC 5 - Cont lopressor, heparin drip 3. HTN - Cont lopressor - Cont to monitor 4. DM - Management per primary GI/DVT PPx - Per primary Pt seen and discussed in detail with Dr. Jose Zambrano, PGY1 <Dusty Garcia - Last Filed: 07/31/17 01:48> Meds - Medications Medications: Current Medications Alprazolam (Xanax) 0.5 mg PO Q12 PRN PRN Reason: anxiety Last Admin: 07/29/17 17:27 Dose: 0.5 mg Aspirin (Ecotrin) 81 mg PO DAILY [facility] Dextrose (Dextrose 50% Inj) 0 ml IV STAT PRN; Protocol PRN Reason: Hypoglycemia Protocol Dextrose (Glutose 15) 0 gm PO ONCE PRN; Protocol PRN Reason: Hypoglycemia Protocol Glucagon (Glucagen Diagnostic Kit) 0 mg IM STAT PRN; Protocol PRN Reason: Hypoglycemia Protocol Dextrose (Dextrose 5% In Water 1000 Ml) 1,000 mls @ 0 mls/hr IV .Q0M PRN; Protocol; Per Protocol PRN Reason: Hypoglycemia Protocol Insulin Human Regular (Novolin R) 0 unit SC ACHS [facility] PRN Reason: Protocol Last Admin: 07/30/17 21:18 Dose: Not Given Latanoprost (Xalatan Opht) 0 ml OU HS [facility] Last Admin: 07/30/17 21:27 Dose: 2.5 ml Metoprolol Succinate (Toprol Xl) 25 mg PO DAILY [facility] Last Admin: 07/30/17 11:19 Dose: Not Given Mirtazapine (Remeron) 15 mg PO HS [facility] Last Admin: 07/30/17 21:28 Dose: 15 mg Pantoprazole Sodium (Protonix Ec Tab) 40 mg PO DAILY [facility] Last Admin: 07/30/17 11:19 Dose: Not Given Rosuvastatin Calcium (Crestor) 5 mg PO HS [facility] Last Admin: 07/30/17 21:22 Dose: 5 mg Ticagrelor (Brilinta) 90 mg PO BID [facility] Last Admin: 07/30/17 18:09 Dose: 90 mg Results - Vital Signs Recent Vital Signs: Last Vital Signs Temp 98.9 F 07/31/17 00:25 Pulse 96 H 07/31/17 00:25 Resp 20 07/31/17 00:25 BP 151/69 H 07/31/17 00:25 Pulse Ox 97 07/31/17 00:25 - Labs Result Diagrams: 07/30/17 05:01 07/30/17 04:34 Labs: Laboratory Results - last 24 hr 07/30/17 07/30/17 07/30/17 04:34 04:39 04:43 WBC RBC Hgb Hct MCV MCH MCHC RDW Plt Count MPV Neut % (Auto) Lymph % (Auto) Falls % (Auto) Eos % (Auto) Baso % (Auto) Neut # (Auto) Lymph # (Auto) Falls # (Auto) Eos # (Auto) Baso # (Auto) APTT 102 H* D Sodium 143 Potassium 3.3 L Chloride 108 H Carbon Dioxide 24 Anion Gap 15 BUN 9 Creatinine 0.5 L Est GFR ( Amer) > 60 Est GFR (Non-Af Amer) > 60 POC Glucose (mg/dL) 139 H Random Glucose 138 H Calcium 8.7 Magnesium 1.7 Total Bilirubin 0.4 AST 23 ALT 16 Alkaline Phosphatase 60 Total Protein 6.7 Albumin 3.6 Globulin 3.1 Albumin/Globulin Ratio 1.2 07/30/17 07/30/17 07/30/17 05:01 17:19 21:07 WBC 7.6 RBC 3.48 L Hgb 10.1 L Hct 29.9 L MCV 86.0 MCH 29.0 MCHC 33.7 RDW 15.6 H Plt Count 116 L D MPV 9.0 Neut % (Auto) 66.2 Lymph % (Auto) 16.6 L Falls % (Auto) 15.3 H Eos % (Auto) 1.2 Baso % (Auto) 0.7 Neut # (Auto) 5.0 Lymph # (Auto) 1.3 Falls # (Auto) 1.2 H Eos # (Auto) 0.1 Baso # (Auto) 0.1 APTT Sodium Potassium Chloride Carbon Dioxide Anion Gap BUN Creatinine Est GFR ( Amer) Est GFR (Non-Af Amer) POC Glucose (mg/dL) 157 H 215 H Random Glucose Calcium Magnesium Total Bilirubin AST ALT Alkaline Phosphatase Total Protein Albumin Globulin Albumin/Globulin Ratio Attending/Attestation - Attestation I have personally seen and examined this patient.: Yes I have fully participated in the care of the patient.: Yes I have reviewed all pertinent clinical information: Yes Notes (Text): 07/29/17 01:47 s/p LHCx for stemi equivalent showing ostial LAD lesion plan for staged PC[place] [facility] [place]
[2017-07-29] MEDS: Heparin25000 units/250ml 1/2NS 25,000 UNITS/250 ML BAG IV SCH (16:44)
[2017-07-29] MEDS: Latanoprost 2.5 ml Opht Soln OU SCH (21:56)
[2017-07-30 05:07] LABS: BASO # 0.1 K/uL (0.0-0.2); BASO % 0.7 % (0.0-2.0); EOS # 0.1 K/uL (0.0-0.7); EOS % 1.2 % (0.0-4.0); HEMOGLOBIN 10.1 g/dL (11.0-16.0); LYMPH # 1.3 K/uL (1.0-4.3); LYMPH % 16.6 % (20.0-40.0); MEAN CORPUSCULAR HGB CONC 33.7 g/dL (33.0-37.0); MONO # 1.2 K/uL (0.0-0.8); MONO % 15.3 % (0.0-10.0); NEUT % 66.2 % (50.0-75.0); RBC 3.48 Mil/uL (3.80-5.20); RED CELL DISTRIBUTION WIDTH 15.6 % (11.5-14.5); WHITE BLOOD COUNT 7.6 K/uL (4.8-10.8)
[2017-07-30 05:08] LABS: ALB/GLOB RATIO 1.2 (1.0-2.1); ALBUMIN 3.6 g/dL (3.5-5.0); ALT/SGPT 16 U/L (9-52); AST/SGOT 23 U/L (14-36); BLOOD UREA NITROGEN 9 mg/dL (7-17); CALCIUM 8.7 mg/dl (8.6-10.4); GFR AFRICAN-AMERICAN > 60; GFR NON-AFRICAN AMERICAN > 60; MAGNESIUM 1.7 mg/dL (1.6-2.3)
[2017-07-30] MEDS ORDERED: Potassium Chloride 20 mEq ER Tab PO ONE (05:23)
[2017-07-30] MEDS ORDERED: Magnesium Sulfate 1 gm in D5W 1 GM/100 ML BAG IVPB ONE (07:30)
[2017-07-30] MEDS: (Novolin R) Insulin Human Regular 100 units/ml vial SC SCH ×4 (07:30→21:18)
[2017-07-30] MEDS: Metoprolol Succinate 25 mg XL Tab PO SCH (11:19)
[2017-07-30] MEDS: Pantoprazole 40 mg EC Tab PO SCH (11:19)
--- NOTE | 2017-07-30 16:44 | CP.PCM.PN ---
<Lorenzo Arredondo - Last Filed: 07/30/17 17:43> Subjective - Date & Time of Evaluation Date of Evaluation: 07/30/17 Time of Evaluation: 06:44 - Subjective Subjective: Patient seen and examined at bedside this am. Per nursing no acute events occurred overnight. The patient does report a little bit of chest pain. She denies any nausea, vomiting, changes in vision, abdominal pain, fevers, chills, dizziness, or any other complaints. Objective - Vital Signs/Intake and Output Vital Signs (last 24 hours): Temp Pulse Resp BP Pulse Ox 98 F 94 H 27 H 165/80 H 97 07/30/17 05:46 07/30/17 07:00 07/30/17 07:00 07/30/17 05:45 07/30/17 06:00 Intake and Output: 07/30/17 07/30/17 06:59 18:59 Intake Total 876.0 Output Total 480 Balance 396.0 - Medications Medications: Current Medications Alprazolam (Xanax) 0.5 mg PO Q12 PRN PRN Reason: anxiety Last Admin: 07/29/17 17:27 Dose: 0.5 mg Dextrose (Dextrose 50% Inj) 0 ml IV STAT PRN; Protocol PRN Reason: Hypoglycemia Protocol Dextrose (Glutose 15) 0 gm PO ONCE PRN; Protocol PRN Reason: Hypoglycemia Protocol Glucagon (Glucagen Diagnostic Kit) 0 mg IM STAT PRN; Protocol PRN Reason: Hypoglycemia Protocol Heparin Sodium/Sodium Chloride (Heparin 08203 Units/250ml 1/2 Normal Saline) 25 ,000 units in 250 mls @ 7.185 mls/hr IV .Q24H [facility]; 12 UNITS/KG/HR PRN Reason: Protocol Last Titration: 07/30/17 04:57 Dose: 7 units/kg/hr, 4.191 mls/hr Sodium Chloride (Sodium Chloride 0.9%) 1,000 mls @ 40 mls/hr IV .Q24H [facility] Last Admin: 07/29/17 11:24 Dose: 40 mls/hr Dextrose (Dextrose 5% In Water 1000 Ml) 1,000 mls @ 0 mls/hr IV .Q0M PRN; Protocol; Per Protocol PRN Reason: Hypoglycemia Protocol Insulin Human Regular (Novolin R) 0 unit SC ACHS [facility] PRN Reason: Protocol Last Admin: 07/30/17 16:37 Dose: Not Given Latanoprost (Xalatan Opht) 0 ml OU HS [facility] Last Admin: 07/29/17 21:56 Dose: 1 ml Metoprolol Succinate (Toprol Xl) 25 mg PO DAILY [facility] Last Admin: 07/30/17 11:19 Dose: Not Given Pantoprazole Sodium (Protonix Ec Tab) 40 mg PO DAILY [facility] Last Admin: 07/30/17 11:19 Dose: Not Given Rosuvastatin Calcium (Crestor) 5 mg PO HS [facility] Last Admin: 07/29/17 21:56 Dose: 5 mg Ticagrelor (Brilinta) 90 mg PO BID [facility] Last Admin: 07/30/17 05:47 Dose: 90 mg - Labs Labs: 07/30/17 05:01 07/30/17 04:34 PT 11.7 SECONDS (9.7-12.2) 07/28/17 10:33 INR 1.0 07/28/17 10:33 APTT 102 SECONDS (21-34) H* D 07/30/17 04:43 - Head Exam Head Exam: ATRAUMATIC, NORMAL INSPECTION, NORMOCEPHALIC - Eye Exam Eye Exam: EOMI, Normal appearance, PERRL. absent: Periorbital tenderness Pupil Exam: NORMAL ACCOMODATION, PERRL. absent: Irregular, Unequal - ENT Exam ENT Exam: Mucous Membranes Moist, Normal Oropharynx - Neck Exam Neck Exam: Full ROM. absent: Lymphadenopathy, Thyromegaly - Cardiovascular Exam Cardiovascular Exam: REGULAR RHYTHM, +S1, +S2 - GI/Abdominal Exam GI & Abdominal Exam: Soft, Normal Bowel Sounds - Extremities Exam Extremities Exam: absent: Joint Swelling, Pedal Edema, Tenderness Additional comments: Left groin has pressure bandage there. No erythema noted or discharge. Right forearm has hematoma present. - Back Exam Back Exam: NORMAL INSPECTION. absent: CVA tenderness (L), CVA tenderness (R), paraspinal tenderness - Neurological Exam Neurological Exam: Alert, Awake - Psychiatric Exam Psychiatric exam: Normal Affect, Normal Mood Assessment and Plan - Assessment and Plan (Free Text) Assessment: 89 yo F with PMH of HTN and DM is being evaluated and treated for STEMI. Plan: 1. STEMI - EKG revealed ST elevation on AVL and ST depression on lateral leads - Troponin < 0.012, 0.049, 0.1840, 0.1490 - Cardiac catherization revealed 80% stenosis of the osteal LAD - Expected to be transferred to [place] this A.M. for therapeutic cardiac cath. Will f/u with results. - Echo still pending. Will f/u with results. - Continue dual antiplatelet therapy - Cont heparin drip, lopressor, Crestor -Will f/u with Cardiology tomorrow for further recommendations. 2. New onset atrial fibrillation - CHADSVASC 5 - Cont lopressor, heparin drip 3. HTN - Cont lopressor - Cont to monitor 4. DM - Continue ISS GI/DVT PPx - Protonix -Heparin Drip <Arpan Hare - Last Filed: 07/30/17 18:15> Objective - Vital Signs/Intake and Output Vital Signs (last 24 hours): Temp Pulse Resp BP Pulse Ox 98 F 94 H 27 H 165/80 H 97 07/30/17 05:46 07/30/17 07:00 07/30/17 07:00 07/30/17 05:45 07/30/17 06:00 Intake and Output: 07/30/17 07/30/17 06:59 18:59 Intake Total 876.0 Output Total 480 Balance 396.0 - Medications Medications: Current Medications Alprazolam (Xanax) 0.5 mg PO Q12 PRN PRN Reason: anxiety Last Admin: 07/29/17 17:27 Dose: 0.5 mg Aspirin (Ecotrin) 81 mg PO DAILY [facility] Dextrose (Dextrose 50% Inj) 0 ml IV STAT PRN; Protocol PRN Reason: Hypoglycemia Protocol Dextrose (Glutose 15) 0 gm PO ONCE PRN; Protocol PRN Reason: Hypoglycemia Protocol Glucagon (Glucagen Diagnostic Kit) 0 mg IM STAT PRN; Protocol PRN Reason: Hypoglycemia Protocol Dextrose (Dextrose 5% In Water 1000 Ml) 1,000 mls @ 0 mls/hr IV .Q0M PRN; Protocol; Per Protocol PRN Reason: Hypoglycemia Protocol Sodium Chloride (Sodium Chloride 0.9%) 1,000 mls @ 30 mls/hr IV .Q24H [facility] Stop: 07/30/17 23:59 Last Admin: 07/30/17 18:03 Dose: 30 mls/hr Insulin Human Regular (Novolin R) 0 unit SC ACHS [facility] PRN Reason: Protocol Last Admin: 07/30/17 16:37 Dose: Not Given Latanoprost (Xalatan Opht) 0 ml OU HS [facility] Last Admin: 07/29/17 21:56 Dose: 1 ml Metoprolol Succinate (Toprol Xl) 25 mg PO DAILY [facility] Last Admin: 07/30/17 11:19 Dose: Not Given Pantoprazole Sodium (Protonix Ec Tab) 40 mg PO DAILY [facility] Last Admin: 07/30/17 11:19 Dose: Not Given Rosuvastatin Calcium (Crestor) 5 mg PO HS [facility] Last Admin: 07/29/17 21:56 Dose: 5 mg Ticagrelor (Brilinta) 90 mg PO BID [facility] Last Admin: 07/30/17 18:09 Dose: 90 mg - Labs Labs: 07/30/17 05:01 07/30/17 04:34 PT 11.7 SECONDS (9.7-12.2) 07/28/17 10:33 INR 1.0 07/28/17 10:33 APTT 102 SECONDS (21-34) H* D 07/30/17 04:43 Attending/Attestation - Attestation I have personally seen and examined this patient.: Yes I have fully participated in the care of the patient.: Yes I have reviewed all pertinent clinical information, including history, physical exam and plan: Yes Notes (Text): 07/30/17 18:10 Hospitalist Progress Note Patient was seen and examined at 6 PM 07/30/17 with Son Ganesh and Daughter Anushka present Patient has just returned from [facility] S/P Cardiac Catheterization with Stent Placment Substernal burning pain NO SOB/Cough NO shoulder pain Bilateral leg and feet arthritic pain (has been present for years Exam: HEENT: NCA, EOMI, PERRLA, NO Pharyngeal erythema/exudate, NO cervical/ supraclavicular/submandibular lymphadenopathy, NO thyromegaly Cardio: NS1 and NS2, NO M/R/G Resp: CTA B/L, NO R/R/W GI: NT, ND, BSx4, NO HSM NO rebound/guarding Ext: Pulses are strong and equal, Capillary Refill is 2 seconds, NO edema, NO bleeding or signs of cellulitis at Right Groin Catheterization Site and Left Groin Catheterization Site, Left Upper Arm mass like area nontender in the midbicep Neuro: CN II through XII are grossly intact Patient is S/P Cardiac Catheterization by Cardiology Dr. Garcia 07/28/17 with finding of 80% occlusion [place] LAD. She underwent Cardiac Catheterization #2 with [address] Dr[address] Garcia at [facility]: Report is pending at this time Assessments: 1). STEMI: ASA, Metoprolol, Crestor, and Brilinta 2). HTN: Metoprolol 3). DM 2: RISS, ACHS 4). [place]: Latanoprost 5). Elevated LFTs: secondary to shock liver? Monitor 6). Left Upper Arm Biceps Mass: Son and Daughter explain that this has been present for the past month and patient relates NO history of injury to the area. U/S of this extremity has been ordered. Arpan Hare D.O.
[2017-07-30] MEDS ORDERED: Sodium Chloride 0.9% 1,000 ML IV SCH (17:30)
[2017-07-30] MEDS: Sodium Chloride 0.9% 1,000 ML IV SCH (17:36)
[2017-07-30] MEDS ORDERED: Magnesium Citrate Oral SOL (300 ml) PO ONE (17:47)
[2017-07-30] MEDS: Heparin25000 units/250ml 1/2NS 25,000 UNITS/250 ML BAG IV SCH (17:48)
[2017-07-30] MEDS ORDERED: Magnesium Hydroxide Susp 30 ml UD PO ONE (17:50)
[2017-07-30] MEDS: Latanoprost 2.5 ml Opht Soln OU SCH ×2 (21:22→21:27)
--- NOTE | 2017-07-30 22:07 | US ---
EXAM: US Left Upper Extremity Non-Vascular, Limited CLINICAL HISTORY: 89 years old, female; Condition or disease; Mass, lump or swelling; Arm, upper; Left; Additional info: Left biceps mass x 1 month TECHNIQUE: Real-time ultrasound scan of the left upper extremity with image documentation. COMPARISON: No relevant prior studies available. FINDINGS: Soft tissues: 3.1 x 1.4 x 2.7 cm mildly heterogeneous but the dominant hyperechoic, vascular lesion in area of clinical concern. IMPRESSION: 1. Soft tissue lesion, indeterminate. Recommend MRI for further characterization.
[2017-07-31 06:26] LABS: BASO % 0.2 % (0.0-2.0); EOS % 0.1 % (0.0-4.0); HEMOGLOBIN 8.2 g/dL (11.0-16.0); LYMPH # 0.5 K/uL (1.0-4.3); LYMPH % 6.8 % (20.0-40.0); MEAN CELL VOLUME 85.1 fL (81.0-99.0); MEAN CORPUSCULAR HEMOGLOBIN 29.5 pg (27.0-31.0); MEAN CORPUSCULAR HGB CONC 34.6 g/dL (33.0-37.0); MEAN PLATELET VOLUME 8.5 fL (7.2-11.7); MONO # 1.1 K/uL (0.0-0.8); NEUT # 6.3 K/uL (1.8-7.0); NEUT % 78.9 % (50.0-75.0); PLATELET COUNT 119 K/uL (130-400); RBC 2.78 Mil/uL (3.80-5.20); RED CELL DISTRIBUTION WIDTH 15.5 % (11.5-14.5)
[2017-07-31 07:41] LABS: ALB/GLOB RATIO 1.2 (1.0-2.1); ALBUMIN 3.2 g/dL (3.5-5.0); ALT/SGPT 19 U/L (9-52); AST/SGOT 17 U/L (14-36); BLOOD UREA NITROGEN 13 mg/dL (7-17); CALCIUM 8.3 mg/dl (8.6-10.4); GFR AFRICAN-AMERICAN > 60; GFR NON-AFRICAN AMERICAN > 60
[2017-07-31 07:53] LABS: ANISOCYTOSIS SLIGHT; BANDS 2 % (0-2); EOSINOPHIL 1 % (0-4); LYMPHOCYTE 7 % (20-40); MONOCYTE 4 % (0-10); NEUTROPHIL 86 % (50-75); PLATELET ESTIMATE SLIGHTLY DECREASED (NORMAL); TOTAL CELLS COUNTED 100
[2017-07-31] MEDS: (Novolin R) Insulin Human Regular 100 units/ml vial SC SCH ×4 (08:15→22:03)
[2017-07-31] MEDS ORDERED: Potassium Chloride 20 mEq ER Tab PO ONE (08:57)
--- NOTE | 2017-07-31 09:48 | CP.PCM.PN ---
Addendum entered and electronically signed by Kameron Zambrano DO 07/31/17 17:54 : Patient should also be on Xarelto due to increased CHADSVASC score. Original Note: <Kameron Zambrano - Last Filed: 07/31/17 11:49> Subjective - Date & Time of Evaluation Date of Evaluation: 07/31/17 Time of Evaluation: 09:45 - Subjective Subjective: Cardiology Progress Note for Dr. Garcia Pt seen and examined at bedside. No acute overnight events. Pt is OOB to chair. Pt denied CP, SOB, n/v/d, abdominal pain, palpitations, fever, chills, PRINCE, or dizziness. Objective - Vital Signs/Intake and Output Vital Signs (last 24 hours): Temp Pulse Resp BP Pulse Ox 97.9 F 92 H 20 119/62 96 07/31/17 08:04 07/31/17 08:04 07/31/17 08:04 07/31/17 08:04 07/31/17 08:04 Intake and Output: 07/31/17 07/31/17 06:59 18:59 Intake Total 30 Output Total 300 Balance -270 - Medications Medications: Current Medications Alprazolam (Xanax) 0.5 mg PO Q12 PRN PRN Reason: anxiety Last Admin: 07/29/17 17:27 Dose: 0.5 mg Aspirin (Ecotrin) 81 mg PO DAILY [facility] Dextrose (Dextrose 50% Inj) 0 ml IV STAT PRN; Protocol PRN Reason: Hypoglycemia Protocol Dextrose (Glutose 15) 0 gm PO ONCE PRN; Protocol PRN Reason: Hypoglycemia Protocol Glucagon (Glucagen Diagnostic Kit) 0 mg IM STAT PRN; Protocol PRN Reason: Hypoglycemia Protocol Dextrose (Dextrose 5% In Water 1000 Ml) 1,000 mls @ 0 mls/hr IV .Q0M PRN; Protocol; Per Protocol PRN Reason: Hypoglycemia Protocol Insulin Human Regular (Novolin R) 0 unit SC ACHS [facility] PRN Reason: Protocol Last Admin: 07/30/17 21:18 Dose: Not Given Latanoprost (Xalatan Opht) 0 ml OU HS [facility] Last Admin: 07/30/17 21:27 Dose: 2.5 ml Metoprolol Succinate (Toprol Xl) 25 mg PO DAILY [facility] Last Admin: 07/30/17 11:19 Dose: Not Given Mirtazapine (Remeron) 15 mg PO HS [facility] Last Admin: 07/30/17 21:28 Dose: 15 mg Pantoprazole Sodium (Protonix Ec Tab) 40 mg PO DAILY [facility] Last Admin: 07/30/17 11:19 Dose: Not Given Rosuvastatin Calcium (Crestor) 5 mg PO HS [facility] Last Admin: 07/30/17 21:22 Dose: 5 mg Ticagrelor (Brilinta) 90 mg PO BID [facility] Last Admin: 07/30/17 18:09 Dose: 90 mg - Labs Labs: 07/31/17 06:20 07/31/17 06:20 PT 11.7 SECONDS (9.7-12.2) 07/28/17 10:33 INR 1.0 07/28/17 10:33 APTT 102 SECONDS (21-34) H* D 07/30/17 04:43 - Constitutional Appears: No Acute Distress - Head Exam Head Exam: NORMAL INSPECTION - Eye Exam Eye Exam: Normal appearance - ENT Exam ENT Exam: Normal Exam - Neck Exam Neck Exam: Normal Inspection - Respiratory Exam Respiratory Exam: Clear to Ausculation Bilateral. absent: Rales, Rhonchi, Wheezes - Cardiovascular Exam Cardiovascular Exam: RRR, +S1, +S2. absent: Gallop, Rubs, Murmur - GI/Abdominal Exam GI & Abdominal Exam: Soft. absent: Distended, Guarding, Tenderness, Mass, Rebound - Extremities Exam Extremities Exam: Normal Inspection - Back Exam Back Exam: NORMAL INSPECTION - Neurological Exam Neurological Exam: Alert, Awake, Oriented x3 - Psychiatric Exam Psychiatric exam: Normal Affect, Normal Mood - Skin Skin Exam: Dry, Intact, Normal Color, Warm Assessment and Plan - Assessment and Plan (Free Text) Assessment: 89 yo F with PMH of HTN and DM presented with STEMI is s/p PCI with stent placement in osteal LAD. Plan: 1. STEMI, CAD - Cardiac catherization revealed 80% stenosis of the osteal LAD, NATACHA placed For full report please refer to - Recommend dual antiplatelet therapy for at least 6 months - Cont Toprol XL, Crestor - Guideline directed therapy for CAD 2. New onset atrial fibrillation - CHADSVASC 5 - Cont Toprol XL 3. HTN - Cont Toprol XL - Cont to monitor 4. DM - Management per primary GI/DVT PPx - Per primary Dispo: Patient is clear from cardiology standpoint. Rx Toprol XL, Crestor, ASA, Brillinta. Follow up in office within 1-2 weeks. At this time we will sign off. Please reconsult as needed. Thank you for allowing us to participate in the care of this patient. Pt seen and discussed in detail with Dr. Jose Zambrano, PGY1 <Dusty Garcia - Last Filed: 07/31/17 17:59> Objective - Vital Signs/Intake and Output Vital Signs (last 24 hours): Temp Pulse Resp BP Pulse Ox 98 F 91 H 20 165/62 H 96 07/31/17 15:57 07/31/17 15:57 07/31/17 15:57 07/31/17 15:57 07/31/17 15:57 Intake and Output: 07/31/17 07/31/17 06:59 18:59 Intake Total 30 Output Total 300 Balance -270 - Medications Medications: Current Medications Alprazolam (Xanax) 0.5 mg PO Q12 PRN PRN Reason: anxiety Last Admin: 07/29/17 17:27 Dose: 0.5 mg Aspirin (Ecotrin) 81 mg PO DAILY [facility] Last Admin: 07/31/17 10:43 Dose: 81 mg Dextrose (Dextrose 50% Inj) 0 ml IV STAT PRN; Protocol PRN Reason: Hypoglycemia Protocol Dextrose (Glutose 15) 0 gm PO ONCE PRN; Protocol PRN Reason: Hypoglycemia Protocol Docusate Sodium (Colace) 100 mg PO BID [facility] Last Admin: 07/31/17 10:43 Dose: 100 mg Glucagon (Glucagen Diagnostic Kit) 0 mg IM STAT PRN; Protocol PRN Reason: Hypoglycemia Protocol Dextrose (Dextrose 5% In Water 1000 Ml) 1,000 mls @ 0 mls/hr IV .Q0M PRN; Protocol; Per Protocol PRN Reason: Hypoglycemia Protocol Insulin Human Regular (Novolin R) 0 unit SC ACHS [facility] PRN Reason: Protocol Last Admin: 07/31/17 12:15 Dose: 2 unit Latanoprost (Xalatan Opht) 0 ml OU HS [facility] Last Admin: 07/30/17 21:27 Dose: 2.5 ml Metoprolol Succinate (Toprol Xl) 25 mg PO DAILY [facility] Last Admin: 07/31/17 10:43 Dose: 25 mg Mirtazapine (Remeron) 15 mg PO HS [facility] Last Admin: 07/30/17 21:28 Dose: 15 mg Pantoprazole Sodium (Protonix Ec Tab) 40 mg PO DAILY [facility] Last Admin: 07/31/17 10:43 Dose: 40 mg Rosuvastatin Calcium (Crestor) 5 mg PO HS [facility] Last Admin: 07/30/17 21:22 Dose: 5 mg Ticagrelor (Brilinta) 90 mg PO BID [facility] Last Admin: 07/31/17 10:43 Dose: 90 mg - Labs Labs: 07/31/17 06:20 07/31/17 06:20 PT 11.7 SECONDS (9.7-12.2) 07/28/17 10:33 INR 1.0 07/28/17 10:33 APTT 102 SECONDS (21-34) H* D 07/30/17 04:43 Attending/Attestation - Attestation I have personally seen and examined this patient.: Yes I have fully participated in the care of the patient.: Yes I have reviewed all pertinent clinical information, including history, physical exam and plan: Yes Notes (Text): 07/31/17 17:58 s/p PCI of ostial LAD with NATACHA change meds to xarelto and plavix on discharge due to episode of afib cont bb cont statins stable to dc home outpt f/u in 1-2 weeks have pt's famliy call at [phone] to make appt
[2017-07-31] MEDS: Pantoprazole 40 mg EC Tab PO SCH (10:43)
[2017-07-31] MEDS: Metoprolol Succinate 25 mg XL Tab PO SCH (10:43)
--- NOTE | 2017-07-31 16:52 | CP.PCM.PN ---
<Maria ElenaJaredn - Last Filed: 07/31/17 18:53> Subjective - Date & Time of Evaluation Date of Evaluation: 07/31/17 Time of Evaluation: 07:50 - Subjective Subjective: Patient seen and examined at bedside. Per nursing no acute events occurred overnight. The patient was reporting feeling fatigued. The patient denies any chest pain, shortness of breath, fevers, chills, nausea, vomiting, changes in vision, headaches, abdominal pain or any other complaints. Objective - Vital Signs/Intake and Output Vital Signs (last 24 hours): Temp Pulse Resp BP Pulse Ox 98 F 91 H 20 165/62 H 96 07/31/17 15:57 07/31/17 15:57 07/31/17 15:57 07/31/17 15:57 07/31/17 15:57 Intake and Output: 07/31/17 07/31/17 06:59 18:59 Intake Total 30 Output Total 300 Balance -270 - Medications Medications: Current Medications Alprazolam (Xanax) 0.5 mg PO Q12 PRN PRN Reason: anxiety Last Admin: 07/29/17 17:27 Dose: 0.5 mg Aspirin (Ecotrin) 81 mg PO DAILY [facility] Last Admin: 07/31/17 10:43 Dose: 81 mg Dextrose (Dextrose 50% Inj) 0 ml IV STAT PRN; Protocol PRN Reason: Hypoglycemia Protocol Dextrose (Glutose 15) 0 gm PO ONCE PRN; Protocol PRN Reason: Hypoglycemia Protocol Docusate Sodium (Colace) 100 mg PO BID [facility] Last Admin: 07/31/17 10:43 Dose: 100 mg Glucagon (Glucagen Diagnostic Kit) 0 mg IM STAT PRN; Protocol PRN Reason: Hypoglycemia Protocol Dextrose (Dextrose 5% In Water 1000 Ml) 1,000 mls @ 0 mls/hr IV .Q0M PRN; Protocol; Per Protocol PRN Reason: Hypoglycemia Protocol Insulin Human Regular (Novolin R) 0 unit SC ACHS [facility] PRN Reason: Protocol Last Admin: 07/31/17 12:15 Dose: 2 unit Latanoprost (Xalatan Opht) 0 ml OU HS [facility] Last Admin: 07/30/17 21:27 Dose: 2.5 ml Metoprolol Succinate (Toprol Xl) 25 mg PO DAILY [facility] Last Admin: 07/31/17 10:43 Dose: 25 mg Mirtazapine (Remeron) 15 mg PO HS [facility] Last Admin: 07/30/17 21:28 Dose: 15 mg Pantoprazole Sodium (Protonix Ec Tab) 40 mg PO DAILY [facility] Last Admin: 07/31/17 10:43 Dose: 40 mg Rosuvastatin Calcium (Crestor) 5 mg PO HS [facility] Last Admin: 07/30/17 21:22 Dose: 5 mg Ticagrelor (Brilinta) 90 mg PO BID [facility] Last Admin: 07/31/17 10:43 Dose: 90 mg - Labs Labs: 07/31/17 06:20 07/31/17 06:20 PT 11.7 SECONDS (9.7-12.2) 07/28/17 10:33 INR 1.0 07/28/17 10:33 APTT 102 SECONDS (21-34) H* D 07/30/17 04:43 - Head Exam Head Exam: ATRAUMATIC, NORMAL INSPECTION, NORMOCEPHALIC - Eye Exam Eye Exam: EOMI, Normal appearance, PERRL Pupil Exam: NORMAL ACCOMODATION, PERRL. absent: Irregular, Unequal - ENT Exam ENT Exam: Mucous Membranes Moist, Normal Exam, Normal Oropharynx - Neck Exam Neck Exam: absent: Lymphadenopathy, Thyromegaly - Respiratory Exam Respiratory Exam: Clear to Ausculation Bilateral, NORMAL BREATHING PATTERN. absent: Chest Wall Tenderness, Prolonged Expiratory Phase, Respiratory Distress - Cardiovascular Exam Cardiovascular Exam: REGULAR RHYTHM, RRR, +S1, +S2. absent: Rubs - GI/Abdominal Exam GI & Abdominal Exam: Soft, Normal Bowel Sounds. absent: Rigid, Hyperactive Bowel Sounds - Extremities Exam Extremities Exam: Full ROM. absent: Joint Swelling, Pedal Edema, Tenderness Additional comments: pressure dressing in the groin region of the left leg. - Back Exam Back Exam: NORMAL INSPECTION. absent: CVA tenderness (L), CVA tenderness (R), paraspinal tenderness - Neurological Exam Neurological Exam: Alert, Awake, CN II-XII Intact, Oriented x3 - Psychiatric Exam Psychiatric exam: Normal Affect, Normal Mood - Skin Skin Exam: Dry, Intact, Normal Color Assessment and Plan - Assessment and Plan (Free Text) Plan: 1. STEMI - EKG revealed ST elevation on AVL and ST depression on lateral leads - Troponin < 0.012, 0.049, 0.1840, 0.1490 - Cardiac catherization revealed 80% stenosis of the ostium LAD - S/p therapeutic cardiac catherization - Echo still taken. Final read not published. Will f/u with final results. - Continue dual antiplatelet therapy - Cont heparin drip, lopressor, Crestor -Cardiology rec's appreciated. 2. New onset atrial fibrillation - CHADSVASC 5 - Cont lopressor, heparin drip 3. HTN - Cont lopressor - Cont to monitor 4. DM - Continue ISS 5. Deconditioning Patient is weak and lives alone. Will try and obtain subacute rehab placement for the patient Patient cleared by Cardiology however we would like secure rehab services for the patient due to the fact she lives alone. GI/DVT PPx - Protonix -Heparin Drip <Arpan Hare - Last Filed: 07/31/17 19:17> Objective - Vital Signs/Intake and Output Vital Signs (last 24 hours): Temp Pulse Resp BP Pulse Ox 98 F 91 H 20 165/62 H 96 07/31/17 15:57 07/31/17 15:57 07/31/17 15:57 07/31/17 15:57 07/31/17 15:57 - Medications Medications: Current Medications Alprazolam (Xanax) 0.5 mg PO Q12 PRN PRN Reason: anxiety Last Admin: 07/29/17 17:27 Dose: 0.5 mg Aspirin (Ecotrin) 81 mg PO DAILY [facility] Last Admin: 07/31/17 10:43 Dose: 81 mg Clopidogrel Bisulfate (Plavix) 75 mg PO DAILY [facility] Dextrose (Dextrose 50% Inj) 0 ml IV STAT PRN; Protocol PRN Reason: Hypoglycemia Protocol Dextrose (Glutose 15) 0 gm PO ONCE PRN; Protocol PRN Reason: Hypoglycemia Protocol Docusate Sodium (Colace) 100 mg PO BID [facility] Last Admin: 07/31/17 18:00 Dose: 100 mg Glucagon (Glucagen Diagnostic Kit) 0 mg IM STAT PRN; Protocol PRN Reason: Hypoglycemia Protocol Dextrose (Dextrose 5% In Water 1000 Ml) 1,000 mls @ 0 mls/hr IV .Q0M PRN; Protocol; Per Protocol PRN Reason: Hypoglycemia Protocol Insulin Human Regular (Novolin R) 0 unit SC ACHS [facility] PRN Reason: Protocol Last Admin: 07/31/17 17:10 Dose: 2 unit Latanoprost (Xalatan Opht) 0 ml OU HS [facility] Last Admin: 07/30/17 21:27 Dose: 2.5 ml Metoprolol Succinate (Toprol Xl) 25 mg PO DAILY [facility] Last Admin: 07/31/17 10:43 Dose: 25 mg Mirtazapine (Remeron) 15 mg PO HS [facility] Last Admin: 07/30/17 21:28 Dose: 15 mg Pantoprazole Sodium (Protonix Ec Tab) 40 mg PO DAILY [facility] Last Admin: 07/31/17 10:43 Dose: 40 mg Rosuvastatin Calcium (Crestor) 5 mg PO HS [facility] Last Admin: 07/30/17 21:22 Dose: 5 mg - Labs Labs: 07/31/17 06:20 07/31/17 06:20 PT 11.7 SECONDS (9.7-12.2) 07/28/17 10:33 INR 1.0 07/28/17 10:33 APTT 102 SECONDS (21-34) H* D 07/30/17 04:43 Attending/Attestation - Attestation I have personally seen and examined this patient.: Yes I have fully participated in the care of the patient.: Yes I have reviewed all pertinent clinical information, including history, physical exam and plan: Yes Notes (Text): 07/31/17 19:13 Hospitalist Progress Note Patient was seen and examined at 10:30 AM 07/31/17 with Son Ganesh Patient went to [facility] 07/30/17 and S/P Cardiac Catheterization with Stent Placment Substernal burning pain NO SOB/Cough NO shoulder pain Bilateral leg and feet arthritic pain (has been present for years Exam: HEENT: NCA, EOMI, PERRLA, NO Pharyngeal erythema/exudate, NO cervical/ supraclavicular/submandibular lymphadenopathy, NO thyromegaly Cardio: NS1 and NS2, NO M/R/G Resp: CTA B/L, NO R/R/W GI: NT, ND, BSx4, NO HSM NO rebound/guarding Ext: Pulses are strong and equal, Capillary Refill is 2 seconds, NO edema, NO bleeding or signs of cellulitis at Right Groin Catheterization Site and Left Groin Catheterization Site, Left Upper Arm mass like area nontender in the midbicep Neuro: CN II through XII are grossly intact Patient is S/P Cardiac Catheterization by Cardiology Dr. Garcia 07/28/17 with finding of 80% occlusion [place] LAD. She underwent Cardiac Catheterization #2 with Stent Placement by Dr. Garcia at [facility]: Report is pending at this time Assessments: 1). STEMI: ASA, Metoprolol, Crestor, and Plavix (to start 08/01/17 as she already received Brillinta 07/31/17) 2). Episode of Atrial Fibrillation in Ambulance upon presentation: in light of the increased [id number] Score Cardiology recommended adding Xarelto. This order will be placed on 08/01/17 after making sure there are NO valvular issue on Echocardiogram that was performed 07/31/17. 3). HTN: Metoprolol 4). DM 2: RISS, ACHS 5). [place]: Latanoprost 6). Elevated LFTs: secondary to shock liver? Monitor 7). Left Upper Arm Biceps Mass: Son and Daughter explained 07/30/17 that this has been present for the past month and patient relates NO history of injury to the area. U/S of this extremity was indeterminate and MRI was recommended. Explained to son Ganesh that this can be done as an outpatient. Spoke with Graphic Design Specialist Hailee and she is working on getting patient to [facility]. Arpan Hare D.O.
[2017-07-31] MEDS: Latanoprost 2.5 ml Opht Soln OU SCH (22:03)
[2017-08-01] MEDS: (Novolin R) Insulin Human Regular 100 units/ml vial SC SCH ×4 (08:36→22:25)
--- NOTE | 2017-08-01 10:21 | CP.PCM.PN ---
Subjective - Date & Time of Evaluation Date of Evaluation: 08/01/17 Time of Evaluation: 10:04 - Subjective Subjective: Cardiology progress note for Dr. Garcia Patient seen and examined at bedside. Patient is feeling fine, is awaiting LEI placement Objective - Vital Signs/Intake and Output Vital Signs (last 24 hours): Temp Pulse Resp BP Pulse Ox 98.3 F 87 18 142/67 98 08/01/17 08:05 08/01/17 08:05 08/01/17 08:05 08/01/17 08:05 08/01/17 08:05 Intake and Output: 08/01/17 08/01/17 06:59 18:59 Intake Total 250 Balance 250 - Medications Medications: Current Medications Alprazolam (Xanax) 0.5 mg PO Q12 PRN PRN Reason: anxiety Last Admin: 07/29/17 17:27 Dose: 0.5 mg Aspirin (Ecotrin) 81 mg PO DAILY [facility] Last Admin: 07/31/17 10:43 Dose: 81 mg Clopidogrel Bisulfate (Plavix) 75 mg PO DAILY [facility] Dextrose (Dextrose 50% Inj) 0 ml IV STAT PRN; Protocol PRN Reason: Hypoglycemia Protocol Dextrose (Glutose 15) 0 gm PO ONCE PRN; Protocol PRN Reason: Hypoglycemia Protocol Docusate Sodium (Colace) 100 mg PO BID [facility] Last Admin: 07/31/17 18:00 Dose: 100 mg Famotidine (Pepcid) 20 mg PO DAILY [facility] Glucagon (Glucagen Diagnostic Kit) 0 mg IM STAT PRN; Protocol PRN Reason: Hypoglycemia Protocol Dextrose (Dextrose 5% In Water 1000 Ml) 1,000 mls @ 0 mls/hr IV .Q0M PRN; Protocol; Per Protocol PRN Reason: Hypoglycemia Protocol Insulin Human Regular (Novolin R) 0 unit SC ACHS [facility] PRN Reason: Protocol Last Admin: 08/01/17 08:36 Dose: 1 unit Latanoprost (Xalatan Opht) 0 ml OU HS [facility] Last Admin: 07/31/17 22:03 Dose: 2.5 ml Metoprolol Succinate (Toprol Xl) 25 mg PO DAILY [facility] Last Admin: 07/31/17 10:43 Dose: 25 mg Mirtazapine (Remeron) 15 mg PO HS [facility] Last Admin: 07/31/17 22:02 Dose: 15 mg Rosuvastatin Calcium (Crestor) 5 mg PO HS [facility] Last Admin: 07/31/17 22:02 Dose: 5 mg - Labs Labs: 07/31/17 06:20 07/31/17 06:20 PT 11.7 SECONDS (9.7-12.2) 07/28/17 10:33 INR 1.0 07/28/17 10:33 APTT 102 SECONDS (21-34) H* D 07/30/17 04:43 - Constitutional Appears: Well - Head Exam Head Exam: ATRAUMATIC, NORMAL INSPECTION, NORMOCEPHALIC - Eye Exam Eye Exam: EOMI, Normal appearance, PERRL Pupil Exam: NORMAL ACCOMODATION, PERRL - ENT Exam ENT Exam: Mucous Membranes Moist, Normal Exam - Neck Exam Neck Exam: Full ROM, Normal Inspection. absent: Lymphadenopathy - Respiratory Exam Respiratory Exam: Clear to Ausculation Bilateral, NORMAL BREATHING PATTERN - Cardiovascular Exam Cardiovascular Exam: REGULAR RHYTHM, +S1, +S2. absent: Murmur - GI/Abdominal Exam GI & Abdominal Exam: Soft, Normal Bowel Sounds. absent: Tenderness - Rectal Exam Rectal Exam: NORMAL INSPECTION - Exam Exam: Circumcision, NORMAL INSPECTION External exam: NORMAL EXTERNAL EXAM Speculum exam: NORMAL SPECULUM EXAM Bimanual exam: NORMAL BIMANUAL EXAM - Extremities Exam Extremities Exam: Full ROM, Normal Capillary Refill, Normal Inspection. absent : Joint Swelling, Pedal Edema - Back Exam Back Exam: NORMAL INSPECTION - Neurological Exam Neurological Exam: Alert, Awake, CN II-XII Intact, Normal Gait, Oriented x3 - Psychiatric Exam Psychiatric exam: Normal Affect, Normal Mood - Skin Skin Exam: Dry, Intact, Normal Color, Warm Assessment and Plan - Assessment and Plan (Free Text) Assessment: Assessment and Plan: 89 yo F with PMH of HTN and DM presented with STEMI is s/p PCI with stent placement in osteal LAD. STEMI, CAD - Cardiac catherization revealed 80% stenosis of the osteal LAD, NATACHA placed For full report please refer to - Recommend dual antiplatelet therapy for at least 6 months - Cont Toprol XL, Crestor - Guideline directed therapy for CAD New onset atrial fibrillation - CHADSVASC 5 - Cont Toprol XL HTN - Cont Toprol XL - Cont to monitor DM - Management per primary GI/DVT PPx - Per primary Dispo: Per the PIONEER trial, patient should be placed on Rivaroxaban with MAPT using Plavix to minimize bleeding risk. These have been placed in her amb orders
[2017-08-01] MEDS: Metoprolol Succinate 25 mg XL Tab PO SCH (10:38)
--- NOTE | 2017-08-01 11:20 | CARD ---
APPROVED REPORT EXAM: Two-dimensional and M-mode echocardiogram with Doppler and color Doppler. Other Information Quality : GoodRhythm : INDICATION S/P CARDIAC CATHETERIZATION FOR KATE 2D DIMENSIONS IVSd1.1 (0.7-1.1cm)LVDd4.2 (3.9-5.9cm) PWd1.3 (0.7-1.1cm)LVDs2.4 (2.5-4.0cm) FS (%) 43.2 %LVEF (%)74.8 (>50%) M-Mode DIMENSIONS Left Atrium (MM)3.65 (2.5-4.0cm)Aortic Root3.19 (2.2-3.7cm) Aortic Cusp Exc.1.77 (1.5-2.0cm) Aortic Valve LVOT Peak Buppjrsg065.7cm/sLVOT VTI21.09cm Mitral Valve MV E Ztihrowo036.2cm/sE/A ratio0.0 TDI E/Lateral E'0.0E/Medial E'0.0 Tricuspid Valve TR Peak Wrujnxrm656mw/sTR Peak Gr.31zfWnMZLX10oeXl LEFT VENTRICLE The left ventricle is normal size. There is mild concentric left ventricular hypertrophy. The Ejection Fraction is 65-70%. There is normal LV segmental wall motion. The left atrial pressure is moderately elevated. RIGHT VENTRICLE The right ventricle is normal size. The right ventricular systolic function is normal. ATRIA The left atrium size is normal. The right atrium size is normal. The interatrial septum is intact with no evidence for an atrial septal defect. AORTIC VALVE The aortic valve is trileaflet. The aortic valve is calcified but opens well. There is trace aortic regurgitation. MITRAL VALVE Mitral annular calcification is moderate. Mitral regurgitation is mild to moderate. TRICUSPID VALVE The tricuspid valve is normal in structure. There is mild tricuspid regurgitation. Right ventricular systolic pressure is estimated at 44 mmHg. There is mild-moderate pulmonary hypertension. PULMONIC VALVE The pulmonary valve is normal in structure. GREAT VESSELS The aortic root is normal in size. The IVC is normal in size and collapses >50% with inspiration. PERICARDIAL EFFUSION There is no pericardial effusion. <Conclusion> The left ventricle is normal size. There is mild concentric left ventricular hypertrophy. The Ejection Fraction is 65-70%. The left atrial pressure is moderately elevated. The aortic valve is trileaflet. The aortic valve is calcified but opens well. There is trace aortic regurgitation. There is trace aortic regurgitation. Mitral annular calcification is moderate. Mitral regurgitation is mild to moderate. There is mild tricuspid regurgitation. Right ventricular systolic pressure is estimated at 44 mmHg. There is mild-moderate pulmonary hypertension.
[2017-08-01 13:48] LABS: BASO % 0.4 % (0.0-2.0); EOS # 0.1 K/uL (0.0-0.7); EOS % 0.5 % (0.0-4.0); HEMOGLOBIN 8.5 g/dL (11.0-16.0); LYMPH # 0.9 K/uL (1.0-4.3); LYMPH % 9.3 % (20.0-40.0); MEAN CELL VOLUME 86.5 fL (81.0-99.0); MEAN CORPUSCULAR HEMOGLOBIN 29.3 pg (27.0-31.0); MEAN CORPUSCULAR HGB CONC 33.8 g/dL (33.0-37.0); MONO # 1.5 K/uL (0.0-0.8); MONO % 15.3 % (0.0-10.0); NEUT # 7.1 K/uL (1.8-7.0); NEUT % 74.5 % (50.0-75.0); PLATELET COUNT 146 K/uL (130-400); RBC 2.92 Mil/uL (3.80-5.20); RED CELL DISTRIBUTION WIDTH 15.6 % (11.5-14.5); WHITE BLOOD COUNT 9.5 K/uL (4.8-10.8)
[2017-08-01 14:31] LABS: ALB/GLOB RATIO 1.2 (1.0-2.1); ALBUMIN 3.8 g/dL (3.5-5.0); ALT/SGPT 27 U/L (9-52); AST/SGOT 27 U/L (14-36); BASOPHIL 1 % (0-2); BLOOD UREA NITROGEN 21 mg/dL (7-17); CALCIUM 8.9 mg/dl (8.6-10.4); EOSINOPHIL 1 % (0-4); GFR AFRICAN-AMERICAN > 60; GFR NON-AFRICAN AMERICAN > 60; TOTAL CELLS COUNTED 100
[2017-08-01 14:32] LABS: ANISOCYTOSIS SLIGHT; HYPOCHROMIC SLIGHT; LYMPHOCYTE 10 % (20-40); MONOCYTE 14 % (0-10); NEUTROPHIL 74 % (50-75); PLATELET ESTIMATE NORMAL (NORMAL)
[2017-08-01 14:33] LABS: OVALOCYTES SLIGHT
[2017-08-01 16:32] VITALS: RESP 20
--- NOTE | 2017-08-01 16:59 | CP.PCM.PN ---
<Lorenzo Arredondo - Last Filed: 08/01/17 17:34> Subjective - Date & Time of Evaluation Date of Evaluation: 08/01/17 Time of Evaluation: 07:57 - Subjective Subjective: Patient seen and examined at bedside. Patient is resting comfortably with no complaints. Per nursing no acute issues overnight .Patient is currently awaiting placement for rehab. Patient denies any chest pain, shortness of breath , fever, chills, changes in vision, nausea, vomiting , headaches, syncopal episodes, or any other complaints. Objective - Vital Signs/Intake and Output Vital Signs (last 24 hours): Temp Pulse Resp BP Pulse Ox 97.5 F L 89 20 172/73 H 89 L 08/01/17 16:00 08/01/17 16:00 08/01/17 16:00 08/01/17 16:00 08/01/17 16:00 Intake and Output: 08/01/17 08/01/17 06:59 18:59 Intake Total 250 Balance 250 - Medications Medications: Current Medications Alprazolam (Xanax) 0.5 mg PO Q12 PRN PRN Reason: anxiety Last Admin: 07/29/17 17:27 Dose: 0.5 mg Aspirin (Ecotrin) 81 mg PO DAILY [facility] Last Admin: 08/01/17 10:38 Dose: 81 mg Clopidogrel Bisulfate (Plavix) 75 mg PO DAILY [facility] Last Admin: 08/01/17 10:38 Dose: 75 mg Dextrose (Dextrose 50% Inj) 0 ml IV STAT PRN; Protocol PRN Reason: Hypoglycemia Protocol Dextrose (Glutose 15) 0 gm PO ONCE PRN; Protocol PRN Reason: Hypoglycemia Protocol Docusate Sodium (Colace) 100 mg PO BID [facility] Last Admin: 08/01/17 10:37 Dose: 100 mg Famotidine (Pepcid) 20 mg PO DAILY [facility] Last Admin: 08/01/17 10:38 Dose: 20 mg Glucagon (Glucagen Diagnostic Kit) 0 mg IM STAT PRN; Protocol PRN Reason: Hypoglycemia Protocol Insulin Human Regular (Novolin R) 0 unit SC ACHS [facility] PRN Reason: Protocol Last Admin: 08/01/17 13:08 Dose: 2 unit Latanoprost (Xalatan Opht) 0 ml OU HS [facility] Last Admin: 07/31/17 22:03 Dose: 2.5 ml Metoprolol Succinate (Toprol Xl) 25 mg PO DAILY [facility] Last Admin: 08/01/17 10:38 Dose: 25 mg Mirtazapine (Remeron) 15 mg PO [facility] Last Admin: 07/31/17 22:02 Dose: 15 mg Rosuvastatin Calcium (Crestor) 5 mg PO HS [facility] Last Admin: 07/31/17 22:02 Dose: 5 mg - Labs Labs: 08/01/17 13:44 08/01/17 13:44 PT 11.7 SECONDS (9.7-12.2) 07/28/17 10:33 INR 1.0 07/28/17 10:33 APTT 102 SECONDS (21-34) H* D 07/30/17 04:43 - Head Exam Head Exam: ATRAUMATIC, NORMAL INSPECTION, NORMOCEPHALIC - Eye Exam Eye Exam: EOMI, Normal appearance, PERRL. absent: Periorbital tenderness Pupil Exam: NORMAL ACCOMODATION, PERRL. absent: Irregular, Unequal - ENT Exam ENT Exam: Mucous Membranes Moist, Normal Oropharynx - Neck Exam Neck Exam: Full ROM. absent: Lymphadenopathy, Thyromegaly - Respiratory Exam Respiratory Exam: Clear to Ausculation Bilateral, NORMAL BREATHING PATTERN. absent: Rhonchi, Wheezes - Cardiovascular Exam Cardiovascular Exam: REGULAR RHYTHM, +S1, +S2 - GI/Abdominal Exam GI & Abdominal Exam: Soft, Normal Bowel Sounds. absent: Rigid, Hyperactive Bowel Sounds - Extremities Exam Extremities Exam: Full ROM. absent: Joint Swelling, Pedal Edema, Tenderness Additional comments: Right groin area incision is dry. no erythema, or discharge appreciated. - Neurological Exam Neurological Exam: Alert, Awake, CN II-XII Intact - Psychiatric Exam Psychiatric exam: Normal Affect, Normal Mood - Skin Skin Exam: Dry, Intact, Normal Color, Warm Assessment and Plan - Assessment and Plan (Free Text) Plan: 1. STEMI - EKG revealed ST elevation on AVL and ST depression on lateral leads - Troponin < 0.012, 0.049, 0.1840, 0.1490 - Cardiac catherization revealed 80% stenosis of the ostium LAD - S/p therapeutic cardiac catherization - Echo: EF: 65-70%, mild concentric lvh, aortic valve is trileaflet, aortic valve is calcified, trace aortic regurgitation. - Continue dual antiplatelet therapy - Cont , lopressor, Crestor -Cardiology rec's appreciated. 2. New onset atrial fibrillation - CHADSVASC 5 - Cont lopressor. 3. HTN - Cont lopressor - Cont to monitor 4. DM - Continue ISS 5. Deconditioning Patient is weak and lives alone. Awaiting placement with [facility]. Patient cleared by Cardiology however we would like secure rehab services for the patient due to the fact she lives alone. GI/DVT PPx - Protonix -Heparin Drip <Arpan Hare - Last Filed: 08/01/17 19:00> Objective - Vital Signs/Intake and Output Vital Signs (last 24 hours): Temp Pulse Resp BP Pulse Ox 97.5 F L 89 20 172/73 H 89 L 08/01/17 16:00 08/01/17 16:00 08/01/17 16:00 08/01/17 16:00 08/01/17 16:00 Intake and Output: 08/01/17 08/01/17 06:59 18:59 Intake Total 250 Balance 250 - Medications Medications: Current Medications Alprazolam (Xanax) 0.5 mg PO Q12 PRN PRN Reason: anxiety Last Admin: 07/29/17 17:27 Dose: 0.5 mg Aspirin (Ecotrin) 81 mg PO DAILY [facility] Last Admin: 08/01/17 10:38 Dose: 81 mg Clopidogrel Bisulfate (Plavix) 75 mg PO DAILY [facility] Last Admin: 08/01/17 10:38 Dose: 75 mg Dextrose (Dextrose 50% Inj) 0 ml IV STAT PRN; Protocol PRN Reason: Hypoglycemia Protocol Dextrose (Glutose 15) 0 gm PO ONCE PRN; Protocol PRN Reason: Hypoglycemia Protocol Docusate Sodium (Colace) 100 mg PO BID [facility] Last Admin: 08/01/17 10:37 Dose: 100 mg Famotidine (Pepcid) 20 mg PO DAILY [facility] Last Admin: 08/01/17 10:38 Dose: 20 mg Glucagon (Glucagen Diagnostic Kit) 0 mg IM STAT PRN; Protocol PRN Reason: Hypoglycemia Protocol Insulin Human Regular (Novolin R) 0 unit SC ACHS [facility] PRN Reason: Protocol Last Admin: 08/01/17 13:08 Dose: 2 unit Latanoprost (Xalatan Opht) 0 ml OU HS [facility] Last Admin: 07/31/17 22:03 Dose: 2.5 ml Metoprolol Succinate (Toprol Xl) 25 mg PO DAILY [facility] Last Admin: 08/01/17 10:38 Dose: 25 mg Mirtazapine (Remeron) 15 mg PO HS [facility] Last Admin: 07/31/17 22:02 Dose: 15 mg Rivaroxaban (Xarelto) 20 mg PO DAILY [facility] Rosuvastatin Calcium (Crestor) 5 mg PO HS [facility] Last Admin: 07/31/17 22:02 Dose: 5 mg - Labs Labs: 08/01/17 13:44 08/01/17 13:44 PT 11.7 SECONDS (9.7-12.2) 07/28/17 10:33 INR 1.0 07/28/17 10:33 APTT 102 SECONDS (21-34) H* D 07/30/17 04:43 Attending/Attestation - Attestation I have personally seen and examined this patient.: Yes I have fully participated in the care of the patient.: Yes I have reviewed all pertinent clinical information, including history, physical exam and plan: Yes Notes (Text): 08/01/17 18:50 Hospitalist Progress Note Patient was seen and examined at 9:15 AM 08/01/17 with Orion Coleman Patient went to [facility] 07/30/17 and S/P Cardiac Catheterization with Stent Placment Substernal burning pain NO SOB/Cough NO shoulder pain Bilateral leg and feet arthritic pain (has been present for years Exam: HEENT: NCA, EOMI, PERRLA, NO Pharyngeal erythema/exudate, NO cervical/ supraclavicular/submandibular lymphadenopathy, NO thyromegaly Cardio: NS1 and NS2, NO M/R/G Resp: CTA B/L, NO R/R/W GI: NT, ND, BSx4, NO HSM NO rebound/guarding Ext: Pulses are strong and equal, Capillary Refill is 2 seconds, NO edema, NO bleeding or signs of cellulitis at Right Groin Catheterization Site and Left Groin Catheterization Site, Left Upper Arm mass like area nontender in the midbicep Neuro: CN II through XII are grossly intact Patient is S/P Cardiac Catheterization by Cardiology Dr. Garcia 07/28/17 with finding of 80% occlusion [place] LAD. She underwent Cardiac Catheterization #2 with Stent Placement by Dr. Garcia at [facility]. Assessments: 1). STEMI: ASA, Metoprolol, Crestor, and Plavix 2). Episode of Atrial Fibrillation in Ambulance upon presentation: in light of the increased [id number] Score Cardiology recommended adding Xarelto. Echocardiogram does not show valvular disease that would be a contraindication to Xarelto therefore it has been started at 20 mg PO 1x/day 3). HTN: Metoprolol 4). DM 2: RISS, ACHS 5). [place]: Latanoprost 6). Elevated LFTs: secondary to shock liver? Monitor 7). Left Upper Arm Biceps Mass: Son and Daughter explained 07/30/17 that this has been present for the past month and patient relates NO history of injury to the area. U/S of this extremity was indeterminate and MRI was recommended. Explained to son Ganesh 07/31/17 that this can be done as an outpatient. Spoke with Managing Editor Hailee and she is working on getting patient to [facility]. Arpan Hare D.O. 08/01/17 18:57
[2017-08-01] MEDS: Latanoprost 2.5 ml Opht Soln OU SCH (21:54)
--- NOTE | 2017-08-02 07:27 | CP.PCM.PN ---
Subjective - Date & Time of Evaluation Date of Evaluation: 08/02/17 Time of Evaluation: 07:25 - Subjective Subjective: Cardiology progress note Patient seen and examined at bedside. Patient states she is having some nausea , but denies chest pain or shortness of breath. Objective - Vital Signs/Intake and Output Vital Signs (last 24 hours): Temp Pulse Resp BP Pulse Ox 98.4 F 82 20 128/67 95 08/02/17 04:05 08/02/17 04:05 08/02/17 04:05 08/02/17 04:05 08/02/17 04:05 - Medications Medications: Current Medications Alprazolam (Xanax) 0.5 mg PO Q12 PRN PRN Reason: anxiety Last Admin: 07/29/17 17:27 Dose: 0.5 mg Aspirin (Ecotrin) 81 mg PO DAILY [facility] Last Admin: 08/01/17 10:38 Dose: 81 mg Clopidogrel Bisulfate (Plavix) 75 mg PO DAILY [facility] Last Admin: 08/01/17 10:38 Dose: 75 mg Dextrose (Dextrose 50% Inj) 0 ml IV STAT PRN; Protocol PRN Reason: Hypoglycemia Protocol Dextrose (Glutose 15) 0 gm PO ONCE PRN; Protocol PRN Reason: Hypoglycemia Protocol Docusate Sodium (Colace) 100 mg PO BID [facility] Last Admin: 08/01/17 18:49 Dose: 100 mg Famotidine (Pepcid) 20 mg PO DAILY [facility] Last Admin: 08/01/17 10:38 Dose: 20 mg Glucagon (Glucagen Diagnostic Kit) 0 mg IM STAT PRN; Protocol PRN Reason: Hypoglycemia Protocol Insulin Human Regular (Novolin R) 0 unit SC [facility] PRN Reason: Protocol Last Admin: 08/01/17 22:25 Dose: Not Given Latanoprost (Xalatan Opht) 0 ml OU HS [facility] Last Admin: 08/01/17 21:54 Dose: 2.5 ml Metoprolol Succinate (Toprol Xl) 25 mg PO DAILY [facility] Last Admin: 08/01/17 10:38 Dose: 25 mg Mirtazapine (Remeron) 15 mg PO HS [facility] Last Admin: 08/01/17 21:54 Dose: 15 mg Rivaroxaban (Xarelto) 20 mg PO DAILY [facility] Rosuvastatin Calcium (Crestor) 5 mg PO HS [facility] Last Admin: 08/01/17 21:54 Dose: 5 mg - Labs Labs: 08/01/17 13:44 08/01/17 13:44 PT 11.7 SECONDS (9.7-12.2) 07/28/17 10:33 INR 1.0 07/28/17 10:33 APTT 102 SECONDS (21-34) H* D 07/30/17 04:43 - Constitutional Appears: Well - Head Exam Head Exam: ATRAUMATIC, NORMAL INSPECTION, NORMOCEPHALIC - Eye Exam Eye Exam: EOMI, Normal appearance, PERRL Pupil Exam: NORMAL ACCOMODATION, PERRL - ENT Exam ENT Exam: Mucous Membranes Moist, Normal Exam - Neck Exam Neck Exam: Full ROM, Normal Inspection. absent: Lymphadenopathy - Respiratory Exam Respiratory Exam: Clear to Ausculation Bilateral, NORMAL BREATHING PATTERN - Cardiovascular Exam Cardiovascular Exam: REGULAR RHYTHM, +S1, +S2. absent: Murmur - GI/Abdominal Exam GI & Abdominal Exam: Soft, Normal Bowel Sounds. absent: Tenderness - Rectal Exam Rectal Exam: NORMAL INSPECTION - Exam Exam: Circumcision, NORMAL INSPECTION External exam: NORMAL EXTERNAL EXAM Speculum exam: NORMAL SPECULUM EXAM Bimanual exam: NORMAL BIMANUAL EXAM - Extremities Exam Extremities Exam: Full ROM, Normal Capillary Refill, Normal Inspection. absent : Joint Swelling, Pedal Edema - Back Exam Back Exam: NORMAL INSPECTION - Neurological Exam Neurological Exam: Alert, Awake, CN II-XII Intact, Normal Gait, Oriented x3 - Psychiatric Exam Psychiatric exam: Normal Affect, Normal Mood - Skin Skin Exam: Dry, Intact, Normal Color, Warm Assessment and Plan - Assessment and Plan (Free Text) Assessment: 89 yo F with PMH of HTN and DM presented with STEMI is s/p PCI with stent placement in osteal LAD. STEMI, CAD - Cardiac catherization revealed 80% stenosis of the osteal LAD, NATACHA placed For full report please refer to - Recommend dual antiplatelet therapy for at least 6 months - Cont Toprol XL, Crestor - Guideline directed therapy for CAD New onset atrial fibrillation - CHADSVASC 5 - Cont Toprol XL HTN - Cont Toprol XL - Cont to monitor DM - Management per primary GI/DVT PPx - Per primary Dispo: Per the PIONEER trial, patient should be placed on Rivaroxaban with MAPT using Plavix to minimize bleeding risk. These have been placed in her amb orders. At this time, no further cardiac intervention is needed.
[2017-08-02] MEDS: (Novolin R) Insulin Human Regular 100 units/ml vial SC SCH ×3 (07:39→18:02)
[2017-08-02] MEDS: Metoprolol Succinate 25 mg XL Tab PO SCH (10:52)
[2017-08-02 16:08] VITALS: BP 145/82; PULSE 87; TEMP 98.7; O2SAT 99
--- NOTE | 2017-08-02 20:20 | CP.PCM.DIS ---
Provider - Provider Date of Admission: 07/28/17 11:26 Attending physician: Eloisa Smith DO Consults: Cardiology Dr. Dusty Garcia Time Spent in preparation of Discharge (in minutes): 40 Hospital Course - Lab Results Lab Results: Micro Results 07/31/17 04:45 Nose MRSA Culture - Final MRSA NOT DETECTED 07/28/17 13:38 Naris MRSA Culture (Admit) - Final MRSA NOT DETECTED Most Recent Lab Values WBC 9.5 K/uL (4.8-10.8) 08/01/17 13:44 RBC 2.92 Mil/uL (3.80-5.20) L 08/01/17 13:44 Hgb 8.5 g/dL (11.0-16.0) L 08/01/17 13:44 Hct 25.2 % (34.0-47.0) L 08/01/17 13:44 MCV 86.5 fL (81.0-99.0) 08/01/17 13:44 MCH 29.3 pg (27.0-31.0) 08/01/17 13:44 MCHC 33.8 g/dL (33.0-37.0) 08/01/17 13:44 RDW 15.6 % (11.5-14.5) H 08/01/17 13:44 Plt Count 146 K/uL (130-400) 08/01/17 13:44 MPV 9.0 fL (7.2-11.7) 08/01/17 13:44 Neut % (Auto) 74.5 % (50.0-75.0) 08/01/17 13:44 Lymph % (Auto) 9.3 % (20.0-40.0) L 08/01/17 13:44 Woodruff % (Auto) 15.3 % (0.0-10.0) H 08/01/17 13:44 Eos % (Auto) 0.5 % (0.0-4.0) 08/01/17 13:44 Baso % (Auto) 0.4 % (0.0-2.0) 08/01/17 13:44 Neut # (Auto) 7.1 K/uL (1.8-7.0) H 08/01/17 13:44 Lymph # (Auto) 0.9 K/uL (1.0-4.3) L 08/01/17 13:44 Woodruff # (Auto) 1.5 K/uL (0.0-0.8) H 08/01/17 13:44 Eos # (Auto) 0.1 K/uL (0.0-0.7) 08/01/17 13:44 Baso # (Auto) 0.0 K/uL (0.0-0.2) 08/01/17 13:44 Neutrophils % (Manual) 74 % (50-75) 08/01/17 13:44 Band Neutrophils % 2 % (0-2) 07/31/17 06:20 Lymphocytes % (Manual) 10 % (20-40) L 08/01/17 13:44 Monocytes % (Manual) 14 % (0-10) H 08/01/17 13:44 Eosinophils % (Manual) 1 % (0-4) 08/01/17 13:44 Basophils % (Manual) 1 % (0-2) 08/01/17 13:44 Platelet Estimate Normal (NORMAL) 08/01/17 13:44 Hypochromasia (manual) Slight 08/01/17 13:44 Anisocytosis (manual) Slight 08/01/17 13:44 Ovalocytes Slight 08/01/17 13:44 PT 11.7 SECONDS (9.7-12.2) 07/28/17 10:33 INR 1.0 07/28/17 10:33 APTT 102 SECONDS (21-34) H* D 07/30/17 04:43 Sodium 142 mmol/L (132-148) 08/01/17 13:44 Potassium 3.9 mmol/L (3.6-5.2) 08/01/17 13:44 Chloride 103 mmol/L (98-107) 08/01/17 13:44 Carbon Dioxide 29 mmol/L (22-30) 08/01/17 13:44 Anion Gap 14 (10-20) 08/01/17 13:44 BUN 21 mg/dL (7-17) H 08/01/17 13:44 Creatinine 0.5 mg/dL (0.7-1.2) L 08/01/17 13:44 Est GFR ( Amer) > 60 08/01/17 13:44 Est GFR (Non-Af Amer) > 60 08/01/17 13:44 POC Glucose (mg/dL) 195 mg/dL (65-110) H 08/02/17 16:25 Random Glucose 212 mg/dL (65-105) H 08/01/17 13:44 Calcium 8.9 mg/dl (8.6-10.4) 08/01/17 13:44 Magnesium 1.7 mg/dL (1.6-2.3) 07/30/17 04:34 Total Bilirubin 0.7 mg/dL (0.2-1.3) 08/01/17 13:44 Direct Bilirubin 1.0 mg/dL (0.0-0.4) H 07/29/17 06:43 AST 27 U/L (14-36) 08/01/17 13:44 ALT 27 U/L (9-52) 08/01/17 13:44 Alkaline Phosphatase 59 U/L (38-126) 08/01/17 13:44 Total Creatine Kinase 69 U/L (30-135) 07/29/17 06:43 CK-MB (Mass) 2.22 ng/mL (0.0-3.38) 07/29/17 06:43 Troponin I 0.1490 ng/mL (0.00-0.120) H* 07/29/17 06:43 NT-Pro-B Natriuret Pep 417 pg/mL (0-900) 07/28/17 10:33 Total Protein 7.0 g/dL (6.3-8.3) 08/01/17 13:44 Albumin 3.8 g/dL (3.5-5.0) 08/01/17 13:44 Globulin 3.2 gm/dL (2.2-3.9) 08/01/17 13:44 Albumin/Globulin Ratio 1.2 (1.0-2.1) 08/01/17 13:44 Blood Type O POSITIVE 07/28/17 11:49 Antibody Screen Negative 07/28/17 11:49 - Hospital Course Hospital Course: Hospitalist Discharge Summary Patient was admitted for STEMI Patient is S/P Cardiac Catheterization by Cardiology Dr. Garcia 07/28/17 with finding of 80% occlusion Ostia LAD. She underwent Cardiac Catheterization #2 with Drug Eluting Stent Placement by Dr. Garcia 07/30/17 at [facility]. She was discharged to [facility] 08/02/17 Patient was seen and examined at 1:45 PM 08/02/17 Upon ROS: NO chest pain NO SOB/Cough NO shoulder pain Decreased appetite Bilateral leg and feet arthritic pain (has been present for years Exam: HEENT: NCA, EOMI, PERRLA, NO Pharyngeal erythema/exudate, NO cervical/ supraclavicular/submandibular lymphadenopathy, NO thyromegaly Cardio: NS1 and NS2, NO M/R/G Resp: CTA B/L, NO R/R/W GI: NT, ND, BSx4, NO HSM NO rebound/guarding Ext: Pulses are strong and equal, Capillary Refill is 2 seconds, NO edema, NO bleeding or signs of cellulitis at Right Groin Catheterization Site and Left Groin Catheterization Site, Left Upper Arm mass like area nontender in the midbicep Neuro: CN II through XII are grossly intact Assessments: 1). STEMI: ASA, Metoprolol, Crestor, and Plavix 2). Episode of Atrial Fibrillation in Ambulance upon presentation: in light of the increased [id number] Score Cardiology recommended adding Xarelto. Echocardiogram does not show valvular disease that would be a contraindication to Xarelto therefore it has been started at 20 mg PO 1x/day 3). HTN: Metoprolol 4). DM 2: RISS, ACHS 5). [place]: Latanoprost 6). Elevated LFTs: secondary to shock liver? Monitor 7). Left Upper Arm Biceps Mass: Son and Daughter explained 07/30/17 that this has been present for the past month and patient relates NO history of injury to the area. U/S of this extremity indicated indeterminate soft tissue mass. Explained to Son Ganesh that patient will need to have MRI of this area as an outpatient. Patient is stable for discharge to [facility] to service of Dr. Linda Castro. Dr. Linda Castro should be notified once patient arrives at [facility]. Please see medical reconciliation for the medications that should be continued while at [facility]. The following medications will need to be continued while at [facility]: Xanax Aspirin Plavix Famotidine Regular INsulin Sliding Scale Latanoprost Metoprolol Succinate Mirtazapine Xarelto Crestor Patient will need to follow up with [employer] [facility] Dr. Dusty Garcia within 7 days of discharge from [facility]. His office number is [phone]. Patient will need MRI Left Upper Arm through PMD for further evaluation of indeterminate mass in the Left Upper Arm Anterior Biceps area Arpan Hare D.O. Discharge Exam - Head Exam Head Exam: ATRAUMATIC, NORMAL INSPECTION, NORMOCEPHALIC Discharge Plan - Discharge Medications Prescriptions: Aspirin [Ecotrin] 81 mg PO DAILY #30 tabec Clopidogrel [Plavix] 75 mg PO DAILY #30 tab Metoprolol Succinate [Toprol XL] 25 mg PO DAILY #30 tab Rivaroxaban [Xarelto] 15 mg PO DAILY #30 tab Rosuvastatin Calcium [Crestor] 5 mg PO HS #30 tab - Follow Up Plan Condition: CRITICAL Disposition: HOME/ ROUTINE Instructions: Metoprolol (By mouth), Aspirin (By mouth), Clopidogrel (By mouth) , Rosuvastatin (By mouth), Rivaroxaban (By mouth), Myocardial Infarction (DC), Diabetes Mellitus Type 2 in Adults (DC), Hypertension (DC) Additional Instructions: Patient is stable for discharge to [facility] to service of Dr. Linda Castro. Dr. Linda Castro should be notified once patient arrives at [facility]. Please see medical reconciliation for the medications that should be continued while at [facility]. The following medications will need to be continued while at [facility]: Xanax Aspirin Plavix Famotidine Regular INsulin Sliding Scale Latanoprost Metoprolol Succinate Mirtazapine Xarelto Crestor Patient will need to follow up with [facility] Dr. Dusty Garcia within 7 days of discharge from [facility]. His office number is [phone]. Arpan Hare D.O. Referrals: Dusty Garcia MD [Staff Provider] -
--- NOTE | 2017-08-05 14:46 | CARD ---
APPROVED REPORT EKG Measurement Heart [id number] <Conclusion> Accelerated Junctional rhythm ST & T wave abnormality, consider lateral ischemia Abnormal ECG
--- NOTE | 2017-08-05 14:47 | CARD ---
APPROVED REPORT EKG Measurement Heart [id number] [id number] <Conclusion> Sinus tachycardia Left ventricular hypertrophy with QRS widening and repolarization abnormality Abnormal ECG
--- NOTE | 2017-08-05 14:47 | CARD ---
APPROVED REPORT EKG Measurement Heart [id number] <Conclusion> Accelerated Junctional rhythm Left axis deviation Left ventricular hypertrophy with repolarization abnormality Abnormal ECG
== END 2017-08-02 22:05 | DRG 246 ==
LOC: C.ER 10:20 → C.9I 11:26 → C.6T 07-31 00:25
PROVIDERS: ADMIT Hospitalist; ATTEND Hospitalist
PROC: 4A023N7 Measurement of Cardiac Sampling and Pressure, Left Heart, Percutaneous Approach (ICD-10-PCS; principal; 2017-07-28)
PROC: B211YZZ Fluoroscopy of Multiple Coronary Arteries using Other Contrast (ICD-10-PCS; 2017-07-28)
PROC: B215YZZ Fluoroscopy of Left Heart using Other Contrast (ICD-10-PCS; 2017-07-28)
PROC: 027034Z Dilation of Coronary Artery, One Artery with Drug-eluting Intraluminal Device, Percutaneous Approach (ICD-10-PCS; 2017-07-30)
DX: I21.02 ST elevation (STEMI) myocardial infarction involving left anterior descending coronary artery (principal); K72.00 Acute and subacute hepatic failure without coma; I48.91 Unspecified atrial fibrillation; E11.9 Type 2 diabetes mellitus without complications; I10 Essential (primary) hypertension; Z90.49 Acquired absence of other specified parts of digestive tract; Z80.0 Family history of malignant neoplasm of digestive organs; I25.10 Atherosclerotic heart disease of native coronary artery without angina pectoris; R79.89 Other specified abnormal findings of blood chemistry